=== PATIENT | male | born 1970 | race Caucasian/White ===

== ENCOUNTER → 2016-08-30 | Outpatient (CLI) | payer BC ==
[~2016-08-30] MED LIST: CIPR-226 PO; HYDR-3812 PO; MTR250T PO; SILD100T; SULF1TAB35 PO
--- OUTSIDE RECORDS SUMMARY | 2016-08-30 13:34 | XMS REPORT | Continuity of Care Document ---
Author Author [facility] Organization [facility] Address Unknown Phone Unavailable Allergies Active Description Code Type Severity Reaction Onset Reported/Identified Relationship to Patient Clinical Status Yes No Known Drug Allergies [id number] Drug Allergy Unknown N/ A 04/27/2016 Medications Problems Date Dx Coded Attending Type Code Diagnosis Diagnosed By 06/01/2014 KAREN GARDNER DO S Ot 237.71 NEUROFIBROMATOSIS,TYPE 1 VON [place] 06/01/2014 KEREN GARDNER DOLINE S Ot 530.81 ESOPHAGEAL REFLUX 06/01/2014 KEREN GARDNER DOLINE S Ot 558.9 NONINF GASTROENTERIT NEC 06/01/2014 KEREN GARDNER DOLINE S Ot 560.1 PARALYTIC ILEUS 06/01/2014 ALEX GARDNER DOQUELINE S Ot 560.32 FECAL IMPACTION 06/01/2014 ALEX GARDNER DOQUELINE S Ot 783.21 LOSS OF WEIGHT 06/01/2014 KEREN GARDNER DOLINE S Ot V11.3 HX OF ALCOHOLISM 06/01/2014 ALEX GARDNER DOQUELINE S Ot V15.82 HISTORY OF TOBACCO USE 06/17/2014 TAN FORD DO 564.00 UNSPECIFIED CONSTIPATION 06/17/2014 TAN FORD DO 578.1 BLOOD IN STOOL 06/17/2014 TAN FORD DO V11.3 PERSONAL HISTORY OF ALCOHOLISM 04/27/2016 HIEN JUAREZ, IMANI Madsen Ot L72.3 SEBACEOUS CYST 04/27/2016 HIEN JUAREZ, IMANI Madsen Ot Z01.818 ENCOUNTER FOR OTHER PREPROCEDURAL EXAMIN 04/27/2016 HIEN JUAREZ, IMANI Madsen Ot L72.3 SEBACEOUS CYST 04/27/2016 HIEN JUAREZ, IMANI Madsen Ot Z01.818 ENCOUNTER FOR OTHER PREPROCEDURAL EXAMIN 05/04/2016 HIEN JUAREZ, IMANI Madsen Ot Q85.09 OTHER NEUROFIBROMATOSIS 05/04/2016 HIEN JUAREZ, IMANI Madsen Ot Z11.2 ENCOUNTER FOR SCREENING FOR OTHER BACTER 05/04/2016 FRANDY LARRY APRN Ot L76.21 POSTPROC HEMOR OF SKIN, SUBCU FOL A DERM 05/05/2016 FRANDY LARRY APRN Ot L76.21 POSTPROC HEMOR OF SKIN, SUBCU FOL A DERM 05/07/2016 LORIE DO, BELGICA K Ot M79.89 OTHER SPECIFIED SOFT TISSUE DISORDERS 05/07/2016 LORIE DO, BELGICA K Ot R60.0 LOCALIZED EDEMA 05/07/2016 LORIE DO, BELGICA K Ot Z98.890 OTHER SPECIFIED POSTPROCEDURAL STATES 05/09/2016 LORIE DO, BELGICA K Ot M79.89 OTHER SPECIFIED SOFT TISSUE DISORDERS 05/09/2016 LORIE DO, BELGICA K Ot R60.0 LOCALIZED EDEMA 05/09/2016 LORIE DO, BELGICA K Ot Z98.890 OTHER SPECIFIED POSTPROCEDURAL STATES 05/10/2016 LORIE DO, BELGICA K Ot M79.89 OTHER SPECIFIED SOFT TISSUE DISORDERS 05/10/2016 LORIE DO, BELGICA K Ot R60.0 LOCALIZED EDEMA 05/10/2016 LORIE DO, BELGICA K Ot Z98.890 OTHER SPECIFIED POSTPROCEDURAL STATES 05/10/2016 HIEN JUAREZ, IMANI Madsen Ot Q85.09 OTHER NEUROFIBROMATOSIS 05/10/2016 HIEN JUAREZ, IMANI Madsen Ot Z11.2 ENCOUNTER FOR SCREENING FOR OTHER BACTER Procedures Code Description Performed By Performed On [facility] 06/17/2014 Results Test Result Range Methicillin resistant Staphylococcus aureus (MRSA) screening culture - 08:10 Methicillin resistant Staphylococcus aureus (MRSA) screening culture NEG NRG Encounters ACCT No. Visit Date/Time Discharge Status Pt. Type Provider Facility Loc./Unit Complaint [id number] 05/07/2016 21:49:00 2015 22:55:00 DIS Emergency BELGICA MELO DO [facility] ER L HAND PAIN WITH SWELLING [id number] 05/04/2016 19:10:00 2015 20:19:00 DIS Emergency FRANDY LARRY APRN [facility] ER POST SURG WOUND BLEEDING [id number] 05/04/2016 07:58:00 2015 14:33:00 DIS Outpatient HIEN JUAREZ, IMANI Madsen [facility] SDC MULTIPLE LESIONS [id number] 04/27/2016 05:35:00 2015 13:38:00 DIS Outpatient HIEN JUAREZ, IMANI Madsen [facility] PREOP EXCISION MULTIPLE CYSTS [id number] 05/31/2014 16:49:00 2013 13:00:00 DIS Inpatient KAREN GARDNER DO [facility] 4TH ABD PAIN INFECTIOUS COLITIS FECAL IMPACTION
--- NOTE | 2016-08-30 14:39 | Diagnostic Imaging Report ---
INDICATION: Lump along the inferior lateral aspect of the scrotum. TECHNIQUE: Real-time grayscale sonographic imaging and color vascular evaluation of both testicles was performed. CORRELATION STUDY: None FINDINGS: RIGHT testicle measures 4.5 x 2.2 x 2.6 cm. The right testicle is unremarkable in echogenicity. No focal testicular mass is demonstrated. There is color vascular flow. The right epididymis is unremarkable. LEFT testicle measures 4.6 x 2.2 x 2.5 cm. The left testicle is normal in echogenicity. No focal testicular mass is demonstrated. There is color vascular signal. The left epididymis is unremarkable. There is elongated slightly hypoechoic somewhat tubular shaped structure inferior to the epididymal tail. This is the reported area of lump. This area measures approximately 3.6 cm in length with maximum thickness of 0.6 cm. No significant internal vascularity. IMPRESSION: 1. Palpable abnormality corresponds to elongated, tubular structure adjacent to the inferior aspect of the epididymal tail. This finding is nonspecific. Perhaps a thrombosed vessel or varicocele. This would be a somewhat unusual appearance for neoplasm or other concerning mass. Would recommend close clinical followup correlation as well as short-term followup ultrasound imaging for reassessment. Dictated by: Dictated on workstation # [id number]
== END ==
LOC: RAD 11:43
PROVIDERS: ATTEND Family Medicine
DX: N50.811 Right testicular pain (principal)
CPT/HCPCS: 76870

== ENCOUNTER → 2017-03-30 | Outpatient (CLI) | payer BC ==
--- NOTE | 2017-03-30 10:09 | Diagnostic Imaging Report ---
PROCEDURE: CT head without contrast. INDICATION: Chronic cephalgia CT HEAD: Multiple contiguous axial CT images of the head were obtained. FINDINGS: Ventricles and sulci are within normal limits for size. There is no intracranial hemorrhage identified. There is no abnormal mass effect or shift of midline structures. IMPRESSION: Unremarkable CT of the head. Dictated by: Dictated on workstation # [id number]
== END ==
LOC: RAD 09:18
PROVIDERS: ATTEND Family Medicine
DX: R51 Headache (principal)
CPT/HCPCS: 70450

== ENCOUNTER 2017-06-20 11:32 | Emergency (ER) | payer BC ==
[~2017-06-20] VITALS: Ht 166.4 cm; Wt 70.3 kg
[2017-06-20] MEDS ORDERED: ESZO2TAB4 PO (11:58)
--- NOTE | 2017-06-20 12:02 | ED Upper Extremity ---
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 This began after pulling about 250 pound worth of bags at work that were stacked. While pulling this he felt a popping sensation in his shoulder. He now feels an intermittent grinding sensation. No history of shoulder pain prior to this. Onset: other (2 weeks ago) Severity: moderate Pain/Injury Location: right shoulder Modifying Factors: Worse With Movement Allergies and Home Medications Allergies Coded Allergies: No Known Drug Allergies (Unverified , 04/27/16) Home Medications Eszopiclone 2 Mg Tablet, 2 MG PO HS PRN for INSOMNIA, (Reported) Sildenafil Citrate 100 Mg Tablet, #6 (Reported) Constitutional: see HPI EENTM: see HPI Respiratory: no symptoms reported Cardiovascular: no symptoms reported Genitourinary: no symptoms reported Musculoskeletal: see HPI Skin: no symptoms reported Psychiatric/Neurological: No Symptoms Reported Past Qwbnsxr-Srcahy-Mevqee Hx Patient Social History Alcohol Use: Occasionally Uses Alcohol Beverage of Choice: Beer Recreational Drug Use: No Smoking Status: Former Smoker Type Used: Electronic/Vapor Former Smoker, Quit: Jul 10, 1989 Recent Foreign Travel: No Contact w/Someone Who Travel: No Recent Infectious Disease Expo: No Recent Hopitalizations: No Physical Abuse: No Sexual Abuse: No Mistreated: No Fear: No Immunizations Up To Date Tetanus Booster (TDap): Less than 5yrs Seasonal Allergies Seasonal Allergies: No Surgeries History of Surgeries: Yes (INGUINAL HERNIA, MULTIPLE NEUROFIBROMAS REMOVED) Surgeries: Abdominal Respiratory History of Respiratory Disorde: No Currently Using CPAP: No Cardiovascular History of Cardiac Disorders: No Neurological History of Neurological Disord: No Reproductive System Hx Reproductive Disorders: No Sexually Transmitted Disease: No HIV/AIDS: No Gastrointestinal History of Gastrointestinal Di: Yes Gastrointestinal Disorders: Gastroesophageal Reflux, Gastrointestinal Bleed Musculoskeletal History of Musculoskeletal Dis: No Endocrine History of Endocrine Disorders: No HEENT History of HEENT Disorders: No Loss of Vision: Bilateral Hearing Impairment: Denies Cancer History of Cancer: No Psychosocial History of Psychiatric Problem: No Suicide Risk Score: 1 Integumentary History of Skin or Integumenta: Yes (NEUROFIBROMAS) Blood Transfusions History of Blood Disorders: No Adverse Reaction to a Blood Tr: No (N/A) Family Medical History Family Medial History: Arthritis 19 MOTHER Neoplasm 19 MOTHER Parkinson's disease 19 FATHER No Family History of: AIDS Abdominal aortic aneurysm [place]'s disease Alcoholism Alzheimer's disease Aphasia Asthma Cancer of mouth Cardiovascular disease Cataracts Colon cancer Completed stroke Congenital disease Congenital heart disease Coronary thrombosis Cystic fibrosis Deafness or hearing loss Dementia Diabetes mellitus Drug abuse Dysphasia Fibrocystic disease of breast Gastroenteritis Glaucoma Headache disorder Hypercholesterolemia Hypertension Infertility Kidney disease Myocardial infarction Not obtainable due to adoption Osteoporosis Prostate cancer Psychosocial problem Respiratory disorder Seizure disorder Severe allergy Thyroid disease Tuberculosis Visual disorder Physical Exam Vital Signs Vital Sign - Last 12Hours 06/20/17 11:48 Temp 98.4 Pulse 97 Resp 16 B/P (MAP) 130/98 (109) Pulse Ox 98 O2 Delivery Room Air Capillary Refill : Less Than 3 Seconds General Appearance: WD/WN, no apparent distress HEENT: PERRL/EOMI, normal ENT inspection Neck: non-tender, full range of motion Respiratory: no respiratory distress, no accessory muscle use Gastrointestinal: normal bowel sounds, non tender Shoulder: normal inspection, non-tender, limited ROM, pain Elbow/Forearm: normal inspection, non-tender Wrist: Yes normal inspection, Yes non-tender Neurologic/Psychiatric: alert, normal mood/affect, oriented x 3 Skin: normal color, warm/dry Laceration Repair : Suture Size: 5-0 Progress/Results/Core Measures Results/Orders My Orders Orders - FRANDY LARRY APRN Shoulder, Right, 3 Views (06/20/17 11:58) Vital Signs/I&O Vital Sign - Last 12Hours 06/20/17 11:48 Temp 98.4 Pulse 97 Resp 16 B/P (MAP) 130/98 (109) Pulse Ox 98 O2 Delivery Room Air Blood Pressure Mean: 109 Departure Impression Impression: Primary Impression: Internal derangement of right shoulder Disposition: 01 HOME, SELF-CARE Condition: Stable Departure-Patient Inst. Decision time for Depature: 12:12 Referrals: KAREN GARDNER DO (PCP/Family) Primary Care Physician Patient Instructions: NO INSTRUCTIONS GIVEN Add. Discharge Instructions: 1. Follow-up with her regular doctor this week to discuss ordering an MRI to better evaluate the cause of your shoulder pain. Use anti-inflammatories in the meantime for pain control such as naproxen or ibuprofen Work/School Note: Work Release Form Date Seen in the Emergency Department: Jun 20, 2017 Return to Work: Jun 21, 2017 Other Restrictions Listed Below: No pushing or pulling greater than 5 pounds with right arm until cleared Copy Copies To 1: KAREN GARDNER PETER J APRN Jun 20, 2017 12:02
[2017-06-20 12:29] VITALS: BP 130/98
--- NOTE | 2017-06-20 12:34 | Diagnostic Imaging Report ---
Three views of the right shoulder. INDICATION: Injury. FINDINGS: No fracture, dislocation, or radiopaque foreign body is seen. Mild joint space narrowing at the acromioclavicular joint is seen. The glenohumeral joint appears unremarkable. IMPRESSION: No fracture seen. Dictated by: Dictated on workstation # [id number]
== END 2017-06-20 12:29 | disposition home or self-care (01) ==
LOC: EDUNIT# 11:32 → ER 11:37
DX: M23.91 Unspecified internal derangement of right knee (principal); K21.9 Gastro-esophageal reflux disease without esophagitis; Z87.891 Personal history of nicotine dependence; Z87.19 Personal history of other diseases of the digestive system; X50.0XXA Overexertion from strenuous movement or load, initial encounter; Y92.59 Other trade areas as the place of occurrence of the external cause
CPT/HCPCS: 73030; 99282

== ENCOUNTER 2017-09-06 15:27 | Emergency (ER) | payer BC ==
[~2017-09-06] VITALS: Ht 172.7 cm; Wt 68.0 kg
[~2017-09-06 15:27] MED LIST changes: +ACHD5005 PO; +ESZO2TAB4 PO; -HYDR-3812 PO
[2017-09-06] MEDS ORDERED: NITROGLYCERIN 0.4 MG SL TABS BTL 25'S SL ONE (15:35)
[2017-09-06] MEDS ORDERED: ASPIRIN 81 MG CHEW (CHILDREN'S ASA) ONE (15:35)
[2017-09-06] MEDS ORDERED: ASPIRIN 81 MG CHEW (CHILDREN'S ASA) PO ONE (15:45)
[2017-09-06 15:51] LABS: BASOPHILS # (AUTO) 0.1 10^3/uL (0.0-0.1); BASOPHILS % (AUTO) 1 % (0-10); EOSINOPHILS # (AUTO) 0.3 10^3/uL (0.0-0.3); EOSINOPHILS % (AUTO) 3 % (0-10); HEMATOCRIT 46 % (40-54); HEMOGLOBIN 16.2 G/DL (13.3-17.7); LYMPHOCYTES # (AUTO) 1.9 X 10^3 (1.0-4.0); LYMPHOCYTES % (AUTO) 21 % (12-44); MEAN CORPUSCULAR HEMOGLOBIN 31 PG (25-34); MEAN CORPUSCULAR HGB CONC 35 G/DL (32-36); MEAN CORPUSCULAR VOLUME 87 FL (80-99); MEAN PLATELET VOLUME 9.2 FL (7.4-10.4); MONOCYTES % (AUTO) 11 % (0-12); NEUTROPHILS # (AUTO) 5.8 X 10^3 (1.8-7.8); NEUTROPHILS % (AUTO) 64 % (42-75); PLATELET COUNT 309 10^3/uL (130-400); RED BLOOD COUNT 5.31 10^6/uL (4.35-5.85); RED CELL DISTRIBUTION WIDTH 13.6 % (10.0-14.5); WHITE BLOOD COUNT 8.9 10^3/uL (4.3-11.0)
--- NOTE | 2017-09-06 15:54 | ED Chest Pain ---
General Chief Complaint: Chest Pain Stated Complaint: CHEST PAIN Nursing Triage Note: PT CO OF CHEST PAIN THAT STARTED APPROX 10 MIN AGO. PT STATES WAS AT REST. PT STATES HAS MID CHEST PAIN. Nursing Sepsis Screen: No Definite Risk Source: patient Exam Limitations: no limitations (VAISHNAVI CHEUNG MD) History of Present Illness Date Seen by Provider: Sep 06, 2017 Time Seen by Provider: 15:29 Initial Comments Here with report of central chest pain that is described as aching and squeezing. Started about 10 minutes prior to arrival and then got better. Denies nausea, vomiting, breathing problems or weakness. Denies sweating. Timing/Duration: 1/2 hour Severity/Quality: moderate Location: central Radiation: no radiation Prior CP/Workup: no prior chest pain, no prior cardiac workup Modifying Factors: improves with rest ASA po KINDERGARTNERS HELPER: No NTG SL KINDERGARTNERS HELPER: No Associated Symptoms: No abdominal pain, No back pain, No dizziness, No fever/ chills, No nausea/vomiting, No shortness of breath, No weakness (VAISHNAVI CHEUNG MD) Allergies and Home Medications Allergies Coded Allergies: No Known Drug Allergies (Unverified , 04/27/16) Home Medications Eszopiclone 2 Mg Tablet, 2 MG PO HS PRN for INSOMNIA, (Reported) Review of Systems Constitutional: see HPI, No diaphoresis, No fever EENTM: No Symptoms Reported Respiratory: No Symptoms Reported Cardiovascular: No Symptoms Reported Gastrointestinal: No Symptoms Reported (VAISHNAVI CHEUNG MD) All Other Systems Reviewed Negative Unless Noted: Yes (VAISHNAVI CHEUNG MD) Past Xloltis-Ndigne-Mldpib Hx Patient Social History Alcohol Use: Denies Use Number of Drinks Today: AA Alcohol Beverage of Choice: Beer Recreational Drug Use: No Smoking Status: Former Smoker Type Used: Electronic/Vapor Former Smoker, Quit: Jul 10, 1989 Recent Foreign Travel: No Contact w/Someone Who Travel: No Recent Infectious Disease Expo: No Recent Hopitalizations: No (VAISHNAVI CHEUNG MD) Immunizations Up To Date Tetanus Booster (TDap): Less than 5yrs (VAISHNAVI CHEUNG MD) Seasonal Allergies Seasonal Allergies: No (VAISHNAVI CHEUNG MD) Surgeries History of Surgeries: Yes (INGUINAL HERNIA, MULTIPLE NEUROFIBROMAS REMOVED) Surgeries: Abdominal (VAISHNAVI CHEUNG MD) Respiratory History of Respiratory Disorde: No Currently Using CPAP: No (VAISHNAVI CHEUNG MD) Cardiovascular History of Cardiac Disorders: No (VAISHNAVI CHEUNG MD) Neurological History of Neurological Disord: No (VAISHNAVI CHEUNG MD) Reproductive System Hx Reproductive Disorders: No Sexually Transmitted Disease: No HIV/AIDS: No (VAISHNAVI CHEUNG MD) Gastrointestinal History of Gastrointestinal Di: Yes Gastrointestinal Disorders: Gastroesophageal Reflux, Gastrointestinal Bleed (VAISHNAVI CHEUNG MD) Musculoskeletal History of Musculoskeletal Dis: No (VAISHNAVI CHEUNG MD) Endocrine History of Endocrine Disorders: No (VAISHNAVI CHEUNG MD) HEENT History of HEENT Disorders: No Loss of Vision: Bilateral Hearing Impairment: Denies (VAISHNAVI CHEUNG MD) Cancer History of Cancer: No (VAISHNAVI CHEUNG MD) Psychosocial History of Psychiatric Problem: No (VAISHNAVI CHEUNG MD) Integumentary History of Skin or Integumenta: Yes (NEUROFIBROMAS) (VAISHNAVI CHEUNG MD) Blood Transfusions History of Blood Disorders: No Adverse Reaction to a Blood Tr: No (N/A) (VAISHNAVI CHEUNG MD) Reviewed Nursing Assessment Reviewed/Agree w Nursing PMH: Yes (VAISHNAVI CHEUNG MD) Family Medical History Significant Family History: No Pertinent Family Hx Family Medial History: Arthritis 19 MOTHER Neoplasm 19 MOTHER Parkinson's disease 19 FATHER (VAISHNAVI CHEUNG MD) Family Medial History: Arthritis 19 MOTHER Neoplasm 19 MOTHER Parkinson's disease 19 FATHER No Family History of: AIDS Abdominal aortic aneurysm Sonu's disease Alcoholism Alzheimer's disease Aphasia Asthma Cancer of mouth Cardiovascular disease Cataracts Colon cancer Completed stroke Congenital disease Congenital heart disease Coronary thrombosis Cystic fibrosis Deafness or hearing loss Dementia Diabetes mellitus Drug abuse Dysphasia Fibrocystic disease of breast Gastroenteritis Glaucoma Headache disorder Hypercholesterolemia Hypertension Infertility Kidney disease Myocardial infarction Not obtainable due to adoption Osteoporosis Prostate cancer Psychosocial problem Respiratory disorder Seizure disorder Severe allergy Thyroid disease Tuberculosis Visual disorder (RAZIA ROMANO) Physical Exam Vital Signs Vital Signs - First Documented 09/06/17 15:27 Temp 97.4 Pulse 83 Resp 18 B/P (MAP) 144/98 (113) Pulse Ox 98 (RAZIA ROMANO) Vital Signs Capillary Refill : Less Than 3 Seconds (VAISHNAVI CHEUNG MD) General Appearance: No Apparent Distress, WD/WN HEENT: PERRL/EOMI, Pharynx Normal Neck: Non Tender, Supple Respiratory: Lungs Clear, Normal Breath Sounds Cardiovascular: Regular Rate, Rhythm, No Murmur Gastrointestinal: Non Tender, Soft Extremity: Normal Inspection, Normal Range of Motion Neurologic/Psychiatric: Alert, Oriented x3 Skin: Normal Color, Warm/Dry (VAISHNAVI CHEUNG MD) Laceration Repair : Suture Size: 5-0 (VAISHNAVI CHEUNG MD) Progress/Results/Core Measures Results/Orders Lab Results Laboratory Tests Test 09/06/17 15:43 09/06/17 18:10 Range/Units White Blood Count 8.9 4.3-11.0 10^3/uL Red Blood Count 5.31 4.35-5.85 10^6/uL Hemoglobin 16.2 13.3-17.7 G/DL Hematocrit 46 40-54 % Mean Corpuscular Volume 87 80-99 FL Mean Corpuscular Hemoglobin 31 25-34 PG Mean Corpuscular Hemoglobin Concent 35 32-36 G/DL Red Cell Distribution Width 13.6 10.0-14.5 % Platelet Count 309 130-400 10^3/uL Mean Platelet Volume 9.2 7.4-10.4 FL Neutrophils (%) (Auto) 64 42-75 % Lymphocytes (%) (Auto) 21 12-44 % Monocytes (%) (Auto) 11 0-12 % Eosinophils (%) (Auto) 3 0-10 % Basophils (%) (Auto) 1 0-10 % Neutrophils # (Auto) 5.8 1.8-7.8 X 10^3 Lymphocytes # (Auto) 1.9 1.0-4.0 X 10^3 Monocytes # (Auto) 1.0 0.0-1.0 X 10^3 Eosinophils # (Auto) 0.3 0.0-0.3 10^3/uL Basophils # (Auto) 0.1 0.0-0.1 10^3/uL Prothrombin Time 12.8 12.2-14.7 SEC INR Comment 1.0 0.8-1.4 Activated Partial Thromboplast Time 31 24-35 SEC D-Dimer 0.73 H 0.00-0.49 UG/ML Sodium Level 141 135-145 MMOL/L Potassium Level 3.9 3.6-5.0 MMOL/L Chloride Level 110 H 98-107 MMOL/L Carbon Dioxide Level 22 21-32 MMOL/L Anion Gap 9 5-14 MMOL/L Blood Urea Nitrogen 19 H 7-18 MG/DL Creatinine 0.91 0.60-1.30 MG/DL Estimat Glomerular Filtration Rate > 60 BUN/Creatinine Ratio 21 Glucose Level 91 70-105 MG/DL Calcium Level 8.9 8.5-10.1 MG/DL Magnesium Level 2.2 1.8-2.4 MG/DL Total Bilirubin 0.5 0.1-1.0 MG/DL Aspartate Amino Transf (AST/SGOT) 17 5-34 U/L Alanine Aminotransferase (ALT/SGPT) 27 0-55 U/L Alkaline Phosphatase 56 40-136 U/L Myoglobin 37.1 10.0-92.0 NG/ML Troponin I < 0.30 < 0.30 <0.30 NG/ML B-Type Natriuretic Peptide 17.5 <100.0 PG/ML Total Protein 7.2 6.4-8.2 GM/DL Albumin 4.2 3.2-4.5 GM/DL Amylase Level 160 H 25-125 U/L Lipase 37 8-78 U/L (RAZIA ROMANO) My Orders Orders - RAZIA ROMANO Nitroglycerin 0.4 Mg Btl 25's (Nitrostat (09/06/17 15:35) Aspirin Chewable Tablet (Baby Aspirin Ch (09/06/17 15:35) (RAZIA ROMANO) Medications Given in ED Current Medications Medications Dose Ordered Sig/Rafael Route Start Time Stop Time Status Last Admin Dose Admin Aspirin 81 mg STK-MED ONCE .ROUTE 09/06/17 15:35 09/06/17 15:39 DC 09/06/17 15:41 81 MG Iohexol 150 ml ONCE ONCE IV 09/06/17 17:15 09/06/17 17:16 DC 09/06/17 17:26 125 ML Sodium Chloride 100 ml ONCE ONCE IV 09/06/17 17:15 09/06/17 17:16 DC 09/06/17 17:26 100 ML Sodium Chloride 1,000 ml @ 0 mls/hr Q0M ONCE IV 09/06/17 16:57 09/06/17 16:58 DC 09/06/17 17:45 1,000 MLS/HR (RAZIA ROMANO) Vital Signs/I&O Vital Sign - Last 12Hours 09/06/17 15:27 Temp 97.4 Pulse 83 Resp 18 B/P (MAP) 144/98 (113) Pulse Ox 98 (RAZIA ROMANO) Blood Pressure Mean: 113 Progress Note : Progress Note Seen and evaluated. IV, labs, EKG and chest x-ray ordered. ASA 324 mg by mouth 1 ordered. No nitroglycerin as patient is currently pain-free. Monitor patient. 165: CT angiogram of the chest and normal saline 1 L bolus ordered due to elevated d-dimer. Patient is still pain-free. Monitor patient. (VAISHNAVI CHEUNG MD) Progress Note : Progress Note Amylase is mildly elevated with a lipase is normal this probably not acute pancreatitis. We have seen examine the patient washistory and agree with further outpatient workup at his leisure as this divorce and be cardiogenic or anything life-threatening at the moment. (RAZIA ROMANO) ECG Initial ECG Impression Date: Sep 06, 2017 Initial ECG Impression Time: 15:29 Initial ECG Rate: 69 Initial ECG Rhythm: Normal Sinus Initial ECG Impression: Normal Initial ECG Comparisson: No Previous ECG Available Comment Sinus rhythm with normal axis. No evidence of ST elevation [place]. No previous available for comparison. Interpreted by me. (VAISHNAVI CHEUNG MD) EKG : EKG Time: 18:08 Rate: 66 Rhythm: Normal Sinus Intervals: Normal ECG Comparisson: Unchanged ECG Impression: Normal Comment No ST segment elevation or depression. (RAZIA ROMANO) Diagnostic Imaging Diagonstic Imaging: Xray Plain Films/CT/US/NM/MRI: chest Comments NAME: MARBELLA SHERIFF [facility] REC#: [id number] PT STATUS: REG ER : 1970 PHYSICIAN: VAISHNAVI CHEUNG MD ADMIT DATE: 09/06/17/ER Signed Date of Exam: 09/06/17 CHEST 1 VIEW, AP/PA ONLY INDICATION: Chest pain. COMPARISON: None. EXAMINATION: Upright portable view of the chest was obtained. FINDINGS: Heart size is normal. The pulmonary vessels are unremarkable. There is no pneumothorax, mediastinal widening or pleural fluid. The lungs are clear. IMPRESSION: No acute abnormality is demonstrated. Dictated by: Dictated on workstation # [id number] Dict: 09/06/17 1613 Trans: 09/06/171652 Interpreted by: TYRON MAC DO Electronically signed by: TYRON AMC DO 09/06/171652 Diagonstic Imaging: CT Plain Films/CT/US/NM/MRI: chest Comments [place] NAME: MARBELLA SHERIFF [facility] REC#: [id number] PT STATUS: REG ER : 1970 PHYSICIAN: VAISHNAVI CHEUNG MD ADMIT DATE: 09/06/17/ER Draft Date of Exam:09/06/17 CT ANGIO CHEST W PROCEDURE: CT angiography of the chest with contrast. TECHNIQUE: Multiple contiguous axial images were obtained through the chest after uneventful bolus administration of intravenous contrast. Reconstructed CTA MIP acquisitions were also performed. INDICATION: Chest pain, short of air The lungs are clear. There is no effusion or pneumothorax. There is no mediastinal mass or adenopathy. There is no aortic dissection. There is no pulmonary embolus. IMPRESSION: No acute abnormality is seen. Dictated on workstation # [id number] Dict: 09/06/17 1741 Trans: 09/06/17 1744 [id number] Interpreted by: SU WADE MD Electronically signed by: (VAISHNAVI CHEUNG MD) Transfer of Care Transfer of Care Time: 18:00 Care transferred to: Babatunde (RAZIA ROMANO) Departure Impression Impression: Primary Impression: Chest pain Qualified Codes: R07.9 - Chest pain, unspecified Disposition: 01 HOME, SELF-CARE Condition: Stable Departure-Patient Inst. Decision time for Depature: 18:49 (RAZIA ROMANO) Referrals: KAREN GARDNER DO (PCP/Family) Primary Care Physician Patient Instructions: Chest Pain That Is Not Caused by the Heart (DC) Add. Discharge Instructions: If your pain persists she should follow-up with your primary care physician for further evaluation. If your pain becomes persistent will go away or is accompanied by fevers, nausea vomiting or other worrisome symptoms you should return to care. All discharge instructions reviewed with patient and/or family. Voiced understanding. Work/School Note: Work Release Form Date Seen in the Emergency Department: Sep 06, 2017 Return to Work: Sep 07, 2017 Restrictions: No Restrictions VAISHNAVI CHEUNG MD Sep 06, 2017 15:53 RAZIA ROMANO Sep 06, 2017 18:26
[2017-09-06 16:10] LABS: PROTHROMBIN TIME PATIENT 12.8 SEC (12.2-14.7)
[2017-09-06 16:14] LABS: ALANINE AMINOTRANSFERASE 27 U/L (0-55); ALBUMIN 4.2 GM/DL (3.2-4.5); ALKALINE PHOSPHATASE 56 U/L (40-136); AMYLASE 160 U/L (25-125); BILIRUBIN,TOTAL 0.5 MG/DL (0.1-1.0); BUN/CREATININE RATIO 21; CALCIUM 8.9 MG/DL (8.5-10.1); CARBON DIOXIDE 22 MMOL/L (21-32); CHLORIDE 110 MMOL/L (98-107); CREATININE SERUM 0.91 MG/DL (0.60-1.30); GFR ESTIMATED > 60; GLUCOSE 91 MG/DL (70-105); LIPASE 37 U/L (8-78); MAGNESIUM 2.2 MG/DL (1.8-2.4); POTASSIUM 3.9 MMOL/L (3.6-5.0); SODIUM 141 MMOL/L (135-145); TOTAL PROTEIN 7.2 GM/DL (6.4-8.2)
--- NOTE | 2017-09-06 16:17 | Diagnostic Imaging Report ---
INDICATION: Chest pain. COMPARISON: None. EXAMINATION: Upright portable view of the chest was obtained. FINDINGS: Heart size is normal. The pulmonary vessels are unremarkable. There is no pneumothorax, mediastinal widening or pleural fluid. The lungs are clear. IMPRESSION: No acute abnormality is demonstrated. Dictated by: Dictated on workstation # [id number]
[2017-09-06 16:20] LABS: MYOGLOBIN SERUM 37.1 NG/ML (10.0-92.0)
[2017-09-06] MEDS ORDERED: NS IV 1000 ML 1,000 ML IV ONE (16:57)
[2017-09-06] MEDS ORDERED: NS 100 ML (IVPB) BAG IV ONE (17:15)
[2017-09-06] MEDS ORDERED: IOHEXOL 350 MG/ML 150 ML (OMNIPAQUE 350) VIAL IV ONE (17:15)
--- NOTE | 2017-09-06 17:45 | Diagnostic Imaging Report ---
PROCEDURE: CT angiography of the chest with contrast. TECHNIQUE: Multiple contiguous axial images were obtained through the chest after uneventful bolus administration of intravenous contrast. Reconstructed CTA MIP acquisitions were also performed. INDICATION: Chest pain, short of air The lungs are clear. There is no effusion or pneumothorax. There is no mediastinal mass or adenopathy. There is no aortic dissection. There is no pulmonary embolus. IMPRESSION: No acute abnormality is seen. Dictated by: Dictated on workstation # [id number]
[2017-09-06 19:00] VITALS: BP 144/102
== END 2017-09-06 19:00 | disposition home or self-care (01) ==
LOC: EDUNIT# 15:27 → ER 15:29
DX: R07.89 Other chest pain (principal); K21.9 Gastro-esophageal reflux disease without esophagitis; Z87.891 Personal history of nicotine dependence; Z87.19 Personal history of other diseases of the digestive system
CPT/HCPCS: 36415; 71045; 71275; 80053; 82150; 83690; 83735; 83874; 83880; 84484; 85025; 85379; 85610; 85730; 93005; 93041; 96360

== ENCOUNTER 2020-10-08 08:30 | Observation (INO) | payer BC ==
[~2020-10-08] VITALS: Ht 167 cm; Wt 72.0 kg
[2020-10-08] MEDS ORDERED: ASPIRIN 81 MG CHEW (CHILDREN'S ASA) ONE (08:38)
[2020-10-08] MEDS ORDERED: NITROGLYCERIN 0.4 MG SL TABS BTL 25'S SL ONE (08:38)
[2020-10-08] MEDS ORDERED: ASPIRIN 81 MG CHEW (CHILDREN'S ASA) PO ONE (08:45)
[2020-10-08] MEDS ORDERED: NITROGLYCERIN 0.4 MG SL TABS BTL 25'S SL PRN ×2 (08:45→11:45)
[2020-10-08 08:51] LABS: BASOPHILS # (AUTO) 0.1 10^3/uL (0.0-0.1); BASOPHILS % (AUTO) 1 % (0-10); EOSINOPHILS # (AUTO) 0.2 10^3/uL (0.0-0.3); EOSINOPHILS % (AUTO) 2 % (0-10); HEMATOCRIT 49 % (40-54); HEMOGLOBIN 16.6 g/dL (13.3-17.7); LYMPHOCYTES # (AUTO) 1.7 10^3/uL (1.0-4.0); LYMPHOCYTES % (AUTO) 18 % (12-44); MEAN CORPUSCULAR HEMOGLOBIN 30 pg (25-34); MEAN CORPUSCULAR HGB CONC 34 g/dL (32-36); MEAN CORPUSCULAR VOLUME 88 fL (80-99); MEAN PLATELET VOLUME 9.1 fL (9.0-12.2); MONOCYTES % (AUTO) 10 % (0-12); NEUTROPHILS # (AUTO) 6.5 10^3/uL (1.8-7.8); NEUTROPHILS % (AUTO) 68 % (42-75); PLATELET COUNT 319 10^3/uL (130-400); WHITE BLOOD COUNT 9.6 10^3/uL (4.3-11.0)
--- NOTE | 2020-10-08 08:55 | ED Chest Pain ---
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 He checked his blood pressure because he was having crushing left-sided substernal chest pain radiating down into his left arm below the level of his elbow. He relates that the blood pressure was 141 systolic. He said his pain was about a 8 out of 10 and he took 2 aspirin 81 mg each at the time and then after he got off work he went home and took a tramadol which brought his pain down to an 8 at its worst to a 4 out of 10. He is not having shortness of breath fever chills cough or sick contacts. No nausea sweats. He denies a history of hypertension, hyperlipidemia or diabetes but says he does not follow with a primary care provider. He has been in the ER for chest pain in the past but denies a heart catheterization. He does not smoke and quit in his 20s. He does not use tobacco products or illicit drugs. He states he does drink rarely beer. He has a history of neurofibromatosis. He denies having used any Viagra recently. 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 Significant family history involving mom dad and siblings all with heart disease starting under the age of 60. His mother of a brain aneurysm his father of a heart attack. Last oral intake was 10:00 yesterday p.m. Allergies and Home Medications Allergies Coded Allergies: No Known Drug Allergies (Unverified , 04/27/16) Home Medications Eszopiclone 2 Mg Tablet, 2 MG PO HS PRN for INSOMNIA, (Reported) Patient Home Medication List Home Medication List Reviewed: Yes Review of Systems Review of Systems Constitutional: No chills, No diaphoresis EENTM: No Blurred Vision, No Double Vision Respiratory: Denies Cough, Denies Orthopnea Cardiovascular: Chest Pain; Denies Edema, Denies Irregular Heart Rate, Denies Lightheadedness Gastrointestinal: Denies Abdominal Pain, Denies Constipated, Denies Diarrhea, Denies Nausea Genitourinary: Denies Burning, Denies Discharge Musculoskeletal: No back pain, No joint pain Psychiatric/Neurological: Denies Anxiety, Denies Depressed All Other Systems Reviewed Negative Unless Noted: Yes Past Hmdwjpa-[id number]-Xtvtmg Hx Patient Social History Alcohol Use: Rarely Uses Alcohol Beverage of Choice: Beer Drug of Choice: Denies Smoking Status: Former Smoker Type Used: Electronic/Vapor Former Smoker, Quit: Jul 10, 1989 Recent Hopitalizations: No Immunizations Up To Date Tetanus Booster (TDap): Less than 5yrs Seasonal Allergies Seasonal Allergies: No Past Medical History Surgeries: Yes (INGUINAL HERNIA, MULTIPLE NEUROFIBROMAS REMOVED) Abdominal Respiratory: No Currently Using CPAP: No Cardiac: No Neurological: No Reproductive Disorders: No Sexually Transmitted Disease: No HIV/AIDS: No Gastrointestinal: Yes Gastroesophageal Reflux, Gastrointestinal Bleed Musculoskeletal: No Endocrine: No HEENT: No Loss of Vision: Bilateral Hearing Impairment: Denies Cancer: No Psychosocial: No Integumentary: Yes (NEUROFIBROMAS) Blood Disorders: No Adverse Reaction/Blood Tranf: No (N/A) Family Medical History Arthritis 19 MOTHER Neoplasm 19 MOTHER Parkinson's disease 19 FATHER No Family History of: AIDS Abdominal aortic aneurysm Ringgold's disease Alcoholism Alzheimer's disease Aphasia Asthma Cancer of mouth Cardiovascular disease Cataracts Colon cancer Completed stroke Congenital disease Congenital heart disease Coronary thrombosis Cystic fibrosis Deafness or hearing loss Dementia Diabetes mellitus Drug abuse Dysphasia Fibrocystic disease of breast Gastroenteritis Glaucoma Headache disorder Hypercholesterolemia Hypertension Infertility Kidney disease Myocardial infarction Not obtainable due to adoption Osteoporosis Prostate cancer Psychosocial problem Respiratory disorder Seizure disorder Severe allergy Thyroid disease Tuberculosis Visual disorder No Pertinent Family Hx Physical Exam Vital Signs Vital Signs - First Documented 10/08/20 08:43 Temp 36.5 Pulse 88 Resp 18 B/P (MAP) 141/100 (114) Pulse Ox 98 O2 Delivery Room Air Capillary Refill : Height, Weight, BMI Height: 5'8.00" Weight: 150lbs. 0.0oz. [id number]; 23.5 BMI Method:Stated General Appearance: WD/WN, Mild Distress HEENT: PERRL/EOMI, Pharynx Normal, Moist Mucous Membranes Neck: Full Range of Motion, Normal Inspection Respiratory: Lungs Clear, Normal Breath Sounds, No Accessory Muscle Use, No Respiratory Distress Cardiovascular: Regular Rate, Rhythm, No Edema, Normal Peripheral Pulses Gastrointestinal: Normal Bowel Sounds, Non Tender, Soft Extremity: Normal Capillary Refill, Normal Inspection, No Pedal Edema Neurologic/Psychiatric: Alert, Oriented x3 Skin: Normal Color, Warm/Dry Procedures/Interventions Suture Size: 5-0 Progress/Results/Core Measures Results/Orders Lab Results Laboratory Tests Test 10/08/20 08:40 10/08/20 09:24 Range/Units White Blood Count 9.6 4.3-11.0 10^3/uL Red Blood Count 5.55 H 4.30-5.52 10^6/uL Hemoglobin 16.6 13.3-17.7 g/dL Hematocrit 49 40-54 % Mean Corpuscular Volume 88 80-99 fL Mean Corpuscular Hemoglobin 30 25-34 pg Mean Corpuscular Hemoglobin Concent 34 32-36 g/dL Red Cell Distribution Width 13.2 10.0-14.5 % Platelet Count 319 130-400 10^3/uL Mean Platelet Volume 9.1 9.0-12.2 fL Immature Granulocyte % (Auto) 1 % Neutrophils (%) (Auto) 68 42-75 % Lymphocytes (%) (Auto) 18 12-44 % Monocytes (%) (Auto) 10 0-12 % Eosinophils (%) (Auto) 2 0-10 % Basophils (%) (Auto) 1 0-10 % Neutrophils # (Auto) 6.5 1.8-7.8 10^3/uL Lymphocytes # (Auto) 1.7 1.0-4.0 10^3/uL Monocytes # (Auto) 1.0 0.0-1.0 10^3/uL Eosinophils # (Auto) 0.2 0.0-0.3 10^3/uL Basophils # (Auto) 0.1 0.0-0.1 10^3/uL Immature Granulocyte # (Auto) 0.1 0.0-0.1 10^3/uL Prothrombin Time 12.6 12.2-14.7 SEC INR Comment 0.9 0.8-1.4 Activated Partial Thromboplast Time 31 24-35 SEC Sodium Level 138 135-145 MMOL/L Potassium Level 4.0 3.6-5.0 MMOL/L Chloride Level 104 98-107 MMOL/L Carbon Dioxide Level 20 L 21-32 MMOL/L Anion Gap 14 5-14 MMOL/L Blood Urea Nitrogen 21 H 7-18 MG/DL Creatinine 0.94 0.60-1.30 MG/DL Estimat Glomerular Filtration Rate > 60 BUN/Creatinine Ratio 22 Glucose Level 97 70-105 MG/DL Calcium Level 9.0 8.5-10.1 MG/DL Corrected Calcium 8.8 8.5-10.1 MG/DL Magnesium Level 2.2 1.6-2.4 MG/DL Total Bilirubin 0.7 0.1-1.0 MG/DL Aspartate Amino Transf (AST/SGOT) 18 5-34 U/L Alanine Aminotransferase (ALT/SGPT) 27 0-55 U/L Alkaline Phosphatase 57 40-136 U/L Myoglobin 136.2 H 10.0-92.0 NG/ML Troponin I < 0.028 <0.028 NG/ML Total Protein 7.3 6.4-8.2 GM/DL Albumin 4.2 3.2-4.5 GM/DL Triglycerides Level 171 H <150 MG/DL Lipase 281 H 8-78 U/L Urine Color YELLOW Urine Clarity CLEAR Urine pH 6.5 5-9 Urine Specific [place] >=1.030 1.016-1.022 Urine Protein NEGATIVE NEGATIVE Urine Glucose (UA) NEGATIVE NEGATIVE Urine Ketones NEGATIVE NEGATIVE Urine Nitrite NEGATIVE NEGATIVE Urine Bilirubin NEGATIVE NEGATIVE Urine Urobilinogen 0.2 < = 1.0 MG/DL Urine Leukocyte Esterase NEGATIVE NEGATIVE Urine RBC (Auto) NEGATIVE NEGATIVE Urine RBC 5-10 H /HPF Urine WBC RARE /HPF Urine Squamous Epithelial Cells NONE /HPF Urine Crystals PRESENT H /LPF Urine Amorphous Sediment RARE CHRISSIE URATES H /LPF Urine Bacteria NEGATIVE /HPF Urine Casts NONE /LPF Urine Mucus LARGE H /LPF Urine Culture Indicated NO Urine Opiates Screen NEGATIVE NEGATIVE Urine Oxycodone Screen NEGATIVE NEGATIVE Urine Methadone Screen NEGATIVE NEGATIVE Urine Propoxyphene Screen NEGATIVE NEGATIVE Urine Barbiturates Screen NEGATIVE NEGATIVE Ur Tricyclic Antidepressants Screen NEGATIVE NEGATIVE Urine Phencyclidine Screen NEGATIVE NEGATIVE Urine Amphetamines Screen NEGATIVE NEGATIVE Urine Methamphetamines Screen POSITIVE H NEGATIVE Urine Benzodiazepines Screen NEGATIVE NEGATIVE Urine Cocaine Screen NEGATIVE NEGATIVE Urine Cannabinoids Screen NEGATIVE NEGATIVE My Orders Orders - JUAN ANTONIORAZIA J Cbc With Automated Diff (10/08/20 08:43) Magnesium (10/08/20 08:43) Chest 1 View, Ap/Pa Only (10/08/20 08:43) Ekg Tracing (10/08/20 08:43) Comprehensive Metabolic Panel (10/08/20 08:43) Myoglobin Serum (10/08/20 08:43) Protime With Inr (10/08/20 08:43) Partial Thromboplastin Time (10/08/20 08:43) O2 (10/08/20 08:43) Monitor-Rhythm Ecg Trace Only (10/08/20 08:43) Lipid Panel (10/09/20 06:00) Ed Iv/Invasive Line Start (10/08/20 08:43) Lipase (10/08/20 08:43) Troponin I (10/08/20 08:43) Nitroglycerin 0.4 Mg Btl 25's (Nitrostat (10/08/20 08:45) Aspirin Chewable Tablet (Baby Aspirin Ch (10/08/20 08:45) Nitroglycerin 0.4 Mg Btl 25's (Nitrostat (10/08/20 08:38) Aspirin Chewable Tablet (Baby Aspirin Ch (10/08/20 08:38) Ua Culture If Indicated (10/08/20 08:45) Drug Screen Stat (Urine) (10/08/20 08:45) Lactated Ringers (Lr 1000 Ml Iv Solution (10/08/20 09:22) Ct Abdomen/Pelvis W (10/08/20 09:29) Iohexol Injection (Omnipaque 350 Mg/Ml 1 (10/08/20 09:45) Received Contrast (Hold Metformin- Contr (10/08/20 09:45) Sodium Chloride Flush (Catheter Flush Sy (10/08/20 09:45) Ns (Ivpb) (Sodium Chloride 0.9% Ivpb Bag (10/08/20 09:45) Triglycerides (10/08/20 10:25) Medications Given in ED Current Medications Medications Dose Ordered Sig/Rafael Route Start Time Stop Time Status Last Admin Dose Admin Aspirin 162 mg ONCE ONCE PO 10/08/20 08:45 10/08/20 08:46 DC 10/08/20 08:49 162 MG Iohexol 100 ml ONCE ONCE IV 10/08/20 09:45 10/08/20 09:46 DC 10/08/20 09:43 92 ML Nitroglycerin 0.4 mg UD PRN SL 10/08/20 08:45 10/08/20 08:49 0.4 MG Sodium Chloride 10 ml NEEDED PRN IV 10/08/20 09:45 10/08/20 09:43 10 ML Sodium Chloride 100 ml ONCE ONCE IV 10/08/20 09:45 10/08/20 09:46 DC 10/08/20 09:43 80 ML Vital Signs/I&O 10/08/20 10/08/20 08:43 08:54 Temp 36.5 Pulse 88 96 Resp 18 16 B/P (MAP) 141/100 (114) 113/96 (102) Pulse Ox 98 96 O2 Delivery Room Air Progress Progress Note #1: Time: 08:51 Progress Note We will give him another 2 x 81 mg aspirin to chew and swallow and try some nitroglycerin for his 8 out of 10 chest pain. Concerning for coronary disease. He has some unknown risk factors and significant family history. Even with a negative troponin 6 hours after the pain started his heart score would be 5 points. High risk; 12-65% 30-day MACE. Admit to hospital or observation. Further testing indicated. Differential includes cardiac, GI, radiculopathy. His EKG findings of a subtle half block elevation in leads II, and III are conserved from previous EKGs in 2018. After a single dose of nitroglycerin his pain went from a 4 down to a 0 out of 10. Progress Note #2: Time: 09:31 Progress Note The patient is still pain and nausea free. His abdomen is nontender to examination. His elevated lipase is confounding from his history so were going to get a CT of the abdomen and pelvis with IV contrast give him a liter of lactated Ringer's and evaluate the character of the pancreas. There is no elevated troponin or bilirubin/transaminitis which might indicate an obstructed duct. Initial ECG Impression Date: Oct 08, 2020 Initial ECG Impression Time: 08:39 Initial ECG Rate: 82 Initial ECG Rhythm: Normal Sinus Initial ECG Intervals: Normal Initial ECG Impression: Normal, Nonspecific Changes Initial ECG Comparisson: Unchanged Comment Sinus rhythm without clinically relevant ST elevation or depression. There is a subtle half block elevation in leads II and III which are conserved from EKGs seen in 2018. Diagnostic Imaging Diagonstic Imaging: Xray Plain Films/CT/US/NM/MRI: chest Comments NAME: MARBELLA SHERIFF MED REC#: [id number] PT STATUS: REG ER : 1970 PHYSICIAN: RAZIA ROMANO MD ADMIT DATE: 10/08/20/ER Draft Date of Exam:10/08/20 CHEST 1 VIEW, AP/PA ONLY INDICATION: Chest pain Frontal chest obtained at 0857 a.m. and compared to 09/06/17. Heart and mediastinal silhouette are normal in appearance. The lungs are clear. There is no pneumothorax or pleural fluid. IMPRESSION: Negative chest. Dictated on workstation # [id number] Dict: 10/08/20 0907 Trans: 10/08/20 0912 [facility] [id number] Interpreted by: CHRISTINE SANCHEZ MD Electronically signed by: Reviewed: Reviewed by Me Diagonstic Imaging: CT Plain Films/CT/US/NM/MRI: abdomen, pelvis Comments NAME: MARBELLA SHERIFF [facility] REC#: [id number] PT STATUS: REG ER : 1970 PHYSICIAN: RAZIA ROMANO MD ADMIT DATE: 10/08/20/ER Draft Date of Exam:10/08/20 CT ABDOMEN/PELVIS W PROCEDURE: CT abdomen and pelvis with contrast. TECHNIQUE: Multiple contiguous axial images were obtained through the abdomen and pelvis after administration of intravenous contrast. Auto Exposure Controls were utilized during the CT exam to meet ALARA standards for radiation dose reduction. All CT scans use one or more of the following dose optimizing techniques: automated exposure control, MA and/or KvP adjustment based on patient size and exam type or iterative reconstruction. INDICATION: Chest pain. Elevated lipase. Hypertension. COMPARISON: 05/31/2014. FINDINGS: Included portions of the lung bases are clear. CT abdomen: There is colonic diverticulosis, but no CT evidence of acute diverticulitis. Normal appendix is identified. Note is made of moderate lipomatosis of the distal small bowel. Small bowel loops are nondistended. Punctate nonobstructive left renal calculus is noted. No renal calculi seen on the right. No ureteral calculi identified on either side. Additionally, there is no hydronephrosis or other evidence of obstruction. Benign-appearing right renal cyst is noted. Liver appears diffusely hypodense on this postcontrast exam suggestive of underlying hepatic steatosis. No focal hepatic masses are seen. There is cholelithiasis. There is no gallbladder wall thickening. There is no pericholecystic free fluid to suggest acute cholecystitis. Pancreas, adrenal glands, and spleen have a normal appearance. No loculated fluid collection, free fluid or free air is seen within the abdomen. No abnormal mesenteric or retroperitoneal adenopathy is identified. Osseous structures show no acute abnormalities. CT pelvis: Urinary bladder is grossly unremarkable. Prostate is moderately enlarged. It measures 5.5 x 4.6 cm in axial dimension. No loculated fluid collection, free fluid or free air is seen within the pelvis. No abnormal adenopathy is identified. Osseous structures show no acute abnormalities. IMPRESSION: 1. No acute abnormalities are seen within the abdomen or pelvis. 2. Moderate lipomatosis of the distal small bowel. Findings are nonspecific, but can be seen with states of chronic inflammation. Correlation with inflammatory bowel disease is recommended. 3. Colonic line diverticulosis, no CT evidence acute diverticulitis. 4. Cholelithiasis, but no CT evidence of acute cholecystitis. 5. Nonobstructive left renal calculus. 6. Prostatomegaly. Dictated on workstation # [id number] Dict: 10/08/20 1001 Trans: 10/08/20 1015 [facility] [id number] Interpreted by: GABRIELE ARGUELLO MD Electronically signed by: Reviewed: Reviewed by Me Departure Communication (Admissions) Time/Spoke to Admitting Phy: 10:35 Discussed the case with Dr. Barajas as well as elevated lipase and methamphetamines. He is agreeable to observe the patient with cardiology consult. Time/Spoke to Consulting Phy: 10:30 Discussed the case with Dr. Tidwell and our concerns with his family history and resolution of pain with nitroglycerin. Discussed the lipase and methamphetamines and he agrees the risk for coronary disease is sufficient to observe the patient on telemetry and he would like to get a stress echocardiogram this afternoon. He would like the patient to remain n.p.o. Impression Primary Impression: Acute coronary syndrome without high troponin Additional Impression: Serum lipase elevation Disposition: ADMITTED INPATIENT Condition: Stable Admissions Decision to Admit Reason: Admit from ER (General) Decision to Admit/Date: Oct 08, 2020 Time/Decision to Admit Time: 10:30 Departure-Patient Inst. Referrals: NO,LOCAL PHYSICIAN (PCP/Family) Primary Care Physician RAZIA ROMANO Oct 08, 2020 08:55
[2020-10-08 08:57] LABS: ALBUMIN 4.2 GM/DL (3.2-4.5); CHLORIDE 104 MMOL/L (98-107); SODIUM 138 MMOL/L (135-145)
[2020-10-08 08:58] LABS: INR 0.9 (0.8-1.4); PROTHROMBIN TIME PATIENT 12.6 SEC (12.2-14.7)
[2020-10-08 08:59] LABS: GLUCOSE 97 MG/DL (70-105); TOTAL PROTEIN 7.3 GM/DL (6.4-8.2)
[2020-10-08 09:00] LABS: CARBON DIOXIDE 20 MMOL/L (21-32)
[2020-10-08 09:01] LABS: BILIRUBIN,TOTAL 0.7 MG/DL (0.1-1.0)
[2020-10-08 09:03] LABS: ALKALINE PHOSPHATASE 57 U/L (40-136); CREATININE SERUM 0.94 MG/DL (0.60-1.30); GFR ESTIMATED > 60
[2020-10-08 09:04] LABS: BUN/CREATININE RATIO 22
[2020-10-08 09:06] LABS: ALANINE AMINOTRANSFERASE 27 U/L (0-55); MAGNESIUM 2.2 MG/DL (1.6-2.4)
[2020-10-08 09:07] LABS: LIPASE 281 U/L (8-78)
--- NOTE | 2020-10-08 09:13 | Diagnostic Imaging Report ---
INDICATION: Chest pain Frontal chest obtained at 0857 a.m. and compared to 09/06/17. Heart and mediastinal silhouette are normal in appearance. The lungs are clear. There is no pneumothorax or pleural fluid. IMPRESSION: Negative chest. Dictated by: Dictated on workstation # [id number]
[2020-10-08] MEDS ORDERED: LACTATED RINGERS 1,000 ML IV STA (09:22)
[2020-10-08 09:30] LABS: BILIRUBIN,URINE NEGATIVE (NEGATIVE); CLARITY,URINE CLEAR; COLOR,URINE YELLOW; GLUCOSE, URINE (UA) NEGATIVE (NEGATIVE); KETONES,URINE NEGATIVE (NEGATIVE); LEUKOCYTE ESTERASE ,URINE NEGATIVE (NEGATIVE); NITRITE,URINE NEGATIVE (NEGATIVE); PH,URINE 6.5 (5-9); PROTEIN,URINE NEGATIVE (NEGATIVE)
[2020-10-08 09:43] LABS: AMPHETAMINE SCREEN, URINE NEGATIVE (NEGATIVE); BARBITURATE SCREEN URINE NEGATIVE (NEGATIVE); BENZODIAZEPINES SCREEN URINE NEGATIVE (NEGATIVE); CANNABINOID SCREEN, URINE NEGATIVE (NEGATIVE); COCAINE SCREEN URINE NEGATIVE (NEGATIVE); METHADONE STAT NEGATIVE (NEGATIVE); METHAMPHETAMINE SCREEN URINE S POSITIVE (NEGATIVE); OPIATE SCREEN URINE NEGATIVE (NEGATIVE); OXYCODONE STAT NEGATIVE (NEGATIVE); PROPOXYPHENE STAT NEGATIVE (NEGATIVE); TRICYCLIC ANTIDEPRESSANTS SCRE NEGATIVE (NEGATIVE)
[2020-10-08] MEDS ORDERED: NS 100 ML (IVPB) BAG IV ONE (09:45)
[2020-10-08] MEDS ORDERED: IOHEXOL 350 MG/ML 100 ML (OMNIPAQUE 350) VIAL IV ONE (09:45)
[2020-10-08] MEDS ORDERED: HOLD METFORMIN - RECEIVED CONTRAST 20 ML VIAL IV SCH (09:45)
[2020-10-08] MEDS ORDERED: CATHETER FLUSH 10 ML SYR IV PRN (09:45)
[2020-10-08 09:46] LABS: AMORPHOUS SEDIMENT,UR RARE AMOR URATES /LPF; BACTERIA,URINE NEGATIVE /HPF; WBC,URINE RARE /HPF
--- NOTE | 2020-10-08 10:16 | Diagnostic Imaging Report ---
PROCEDURE: CT abdomen and pelvis with contrast. TECHNIQUE: Multiple contiguous axial images were obtained through the abdomen and pelvis after administration of intravenous contrast. Auto Exposure Controls were utilized during the CT exam to meet ALARA standards for radiation dose reduction. All CT scans use one or more of the following dose optimizing techniques: automated exposure control, MA and/or KvP adjustment based on patient size and exam type or iterative reconstruction. INDICATION: Chest pain. Elevated lipase. Hypertension. COMPARISON: 05/31/2014. FINDINGS: Included portions of the lung bases are clear. CT abdomen: There is colonic diverticulosis, but no CT evidence of acute diverticulitis. Normal appendix is identified. Note is made of moderate lipomatosis of the distal small bowel. Small bowel loops are nondistended. Punctate nonobstructive left renal calculus is noted. No renal calculi seen on the right. No ureteral calculi identified on either side. Additionally, there is no hydronephrosis or other evidence of obstruction. Benign-appearing right renal cyst is noted. Liver appears diffusely hypodense on this postcontrast exam suggestive of underlying hepatic steatosis. No focal hepatic masses are seen. There is cholelithiasis. There is no gallbladder wall thickening. There is no pericholecystic free fluid to suggest acute cholecystitis. Pancreas, adrenal glands, and spleen have a normal appearance. No loculated fluid collection, free fluid or free air is seen within the abdomen. No abnormal mesenteric or retroperitoneal adenopathy is identified. Osseous structures show no acute abnormalities. CT pelvis: Urinary bladder is grossly unremarkable. Prostate is moderately enlarged. It measures 5.5 x 4.6 cm in axial dimension. No loculated fluid collection, free fluid or free air is seen within the pelvis. No abnormal adenopathy is identified. Osseous structures show no acute abnormalities. IMPRESSION: 1. No acute abnormalities are seen within the abdomen or pelvis. 2. Moderate lipomatosis of the distal small bowel. Findings are nonspecific, but can be seen with states of chronic inflammation. Correlation with inflammatory bowel disease is recommended. 3. Colonic line diverticulosis, no CT evidence acute diverticulitis. 4. Cholelithiasis, but no CT evidence of acute cholecystitis. 5. Nonobstructive left renal calculus. 6. Prostatomegaly. Dictated by: Dictated on workstation # [id number]
[2020-10-08 10:42] VITALS: BP 121/87
[2020-10-08] MEDS ORDERED: morphine INJ 4 MG/ML 1 ML (VIAL/SYRINGE) IV PRN (11:45)
[2020-10-08] MEDS ORDERED: LORazepam INJ 2 MG/ML (ATIVAN) VIAL IV PRN (11:45)
[2020-10-08] MEDS ORDERED: ONDANSETRON 4 MG/2 ML (SDV) Z0FRAN IV PRN (11:45)
[2020-10-08] MEDS ORDERED: ASPIRIN E.C. 81 MG (ECOTRIN) TAB PO SCH (12:00)
--- NOTE | 2020-10-08 13:08 | Consultation-Cardiology ---
HPI-Cardiology Cardiology Consultation Date of Consultation 10/08/20 Date of Admission Time Seen by Provider: 13:04 Indication: Chest pain HPI 50 years old gentleman with no significant past medical history, started to have chest pain described as dull in nature on the left side of his chest radiating to the left arm, no shortness of breath. No palpitation, came into the emergen cy room, reported improvement. Noted to have elevation in lipase level. Currently chest pain-free. No similar episodes in the past Home Medications & Allergies Allergies: Coded Allergies: No Known Drug Allergies (Unverified , 04/27/16) Home Medication List Reviewed: Yes Does not take any medication at home [id number]-Gduytv-Slcvec Hx Patient Social History Marital Status: Recreational Drug Use: No Drug of Choice: Denies Smoking Status: Never a Smoker Type Used: Electronic/Vapor Recent Hopitalizations: No Have you traveled recently?: No Alcohol Use?: Yes Immunizations Up To Date Tetanus Booster (TDap): Less than 5yrs Past Medical History Discussed below Family Medical History Significant Family History: No Pertinent Family Hx Family History: Arthritis 19 MOTHER Neoplasm 19 MOTHER Parkinson's disease 19 FATHER No Family History of: AIDS Abdominal aortic aneurysm Idamay's disease Alcoholism Alzheimer's disease Aphasia Asthma Cancer of mouth Cardiovascular disease Cataracts Colon cancer Completed stroke Congenital disease Congenital heart disease Coronary thrombosis Cystic fibrosis Deafness or hearing loss Dementia Diabetes mellitus Drug abuse Dysphasia Fibrocystic disease of breast Gastroenteritis Glaucoma Headache disorder Hypercholesterolemia Hypertension Infertility Kidney disease Myocardial infarction Not obtainable due to adoption Osteoporosis Prostate cancer Psychosocial problem Respiratory disorder Seizure disorder Severe allergy Thyroid disease Tuberculosis Visual disorder Review of Systems-General Review of Systems Constitutional: No chills, No diaphoresis EENTM: see HPI, no symptoms reported Respiratory: see HPI; No cough, No dyspnea on exertion, No hemoptysis, No or thopnea, No phlegm, No short of breath, No stridor, No wheezing, No other Cardiovascular: see HPI, chest pain; No edema, No Hx of Intervention, No palpitations, No syncope, No vascular heart diseas, No other Gastrointestinal: no symptoms reported, see HPI Genitourinary: no symptoms reported, see HPI Musculoskeletal: No back pain, No joint pain Skin: no symptoms reported, see HPI Psychiatric/Neurological: Denies Anxiety, Denies Depressed All Other Systems Reviewed Negative Unless Noted: Yes Reviewed Test Results Reviewed Test Results Lab Laboratory Tests Test 10/08/20 08:40 10/08/20 09:24 10/08/20 12:02 Range/Units White Blood Count 9.6 4.3-11.0 10^3/uL Red Blood Count 5.55 H 4.30-5.52 10^6/uL Hemoglobin 16.6 13.3-17.7 g/dL Hematocrit 49 40-54 % Mean Corpuscular Volume 88 80-99 fL Mean Corpuscular Hemoglobin 30 25-34 pg Mean Corpuscular Hemoglobin Concent 34 32-36 g/dL Red Cell Distribution Width 13.2 10.0-14.5 % Platelet Count 319 130-400 10^3/uL Mean Platelet Volume 9.1 9.0-12.2 fL Immature Granulocyte % (Auto) 1 % Neutrophils (%) (Auto) 68 42-75 % Lymphocytes (%) (Auto) 18 12-44 % Monocytes (%) (Auto) 10 0-12 % Eosinophils (%) (Auto) 2 0-10 % Basophils (%) (Auto) 1 0-10 % Neutrophils # (Auto) 6.5 1.8-7.8 10^3/uL Lymphocytes # (Auto) 1.7 1.0-4.0 10^3/uL Monocytes # (Auto) 1.0 0.0-1.0 10^3/uL Eosinophils # (Auto) 0.2 0.0-0.3 10^3/uL Basophils # (Auto) 0.1 0.0-0.1 10^3/uL Immature Granulocyte # (Auto) 0.1 0.0-0.1 10^3/uL Prothrombin Time 12.6 12.2-14.7 SEC INR Comment 0.9 0.8-1.4 Activated Partial Thromboplast Time 31 24-35 SEC Sodium Level 138 135-145 MMOL/L Potassium Level 4.0 3.6-5.0 MMOL/L Chloride Level 104 98-107 MMOL/L Carbon Dioxide Level 20 L 21-32 MMOL/L Anion Gap 14 5-14 MMOL/L Blood Urea Nitrogen 21 H 7-18 MG/DL Creatinine 0.94 0.60-1.30 MG/DL Estimat Glomerular Filtration Rate > 60 BUN/Creatinine Ratio 22 Glucose Level 97 70-105 MG/DL Calcium Level 9.0 8.5-10.1 MG/DL Corrected Calcium 8.8 8.5-10.1 MG/DL Magnesium Level 2.2 1.6-2.4 MG/DL Total Bilirubin 0.7 0.1-1.0 MG/DL Aspartate Amino Transf (AST/SGOT) 18 5-34 U/L Alanine Aminotransferase (ALT/SGPT) 27 0-55 U/L Alkaline Phosphatase 57 40-136 U/L Myoglobin 136.2 H 10.0-92.0 NG/ML Troponin I < 0.028 < 0.028 <0.028 NG/ML Total Protein 7.3 6.4-8.2 GM/DL Albumin 4.2 3.2-4.5 GM/DL Triglycerides Level 171 H <150 MG/DL Lipase 281 H 8-78 U/L Urine Color YELLOW Urine Clarity CLEAR Urine pH 6.5 5-9 Urine Specific [place] >=1.030 1.016-1.022 Urine Protein NEGATIVE NEGATIVE Urine Glucose (UA) NEGATIVE NEGATIVE Urine Ketones NEGATIVE NEGATIVE Urine Nitrite NEGATIVE NEGATIVE Urine Bilirubin NEGATIVE NEGATIVE Urine Urobilinogen 0.2 < = 1.0 MG/DL Urine Leukocyte Esterase NEGATIVE NEGATIVE Urine RBC (Auto) NEGATIVE NEGATIVE Urine RBC 5-10 H /HPF Urine WBC RARE /HPF Urine Squamous Epithelial Cells NONE /HPF Urine Crystals PRESENT H /LPF Urine Amorphous Sediment RARE CHRISSIE URATES H /LPF Urine Bacteria NEGATIVE /HPF Urine Casts NONE /LPF Urine Mucus LARGE H /LPF Urine Culture Indicated NO Urine Opiates Screen NEGATIVE NEGATIVE Urine Oxycodone Screen NEGATIVE NEGATIVE Urine Methadone Screen NEGATIVE NEGATIVE Urine Propoxyphene Screen NEGATIVE NEGATIVE Urine Barbiturates Screen NEGATIVE NEGATIVE Ur Tricyclic Antidepressants Screen NEGATIVE NEGATIVE Urine Phencyclidine Screen NEGATIVE NEGATIVE Urine Amphetamines Screen NEGATIVE NEGATIVE Urine Methamphetamines Screen POSITIVE H NEGATIVE Urine Benzodiazepines Screen NEGATIVE NEGATIVE Urine Cocaine Screen NEGATIVE NEGATIVE Urine Cannabinoids Screen NEGATIVE NEGATIVE Physical Exam Physical Exam Vital Signs Vital Signs - First Documented 10/08/20 08:43 Temp 36.5 Pulse 88 Resp 18 B/P (MAP) 141/100 (114) Pulse Ox 98 O2 Delivery Room Air Capillary Refill : Less Than 3 Seconds Height, Weight, BMI Height: 5'8.00" Weight: 150lbs. 0.0oz. [id number]; 25.81 BMI Method:Stated General Appearance: WD/WN, Mild Distress Eyes: Bilateral Eye Normal Inspection, Bilateral Eye PERRL, Bilateral Eye EOMI HEENT: PERRL/EOMI, Pharynx Normal, Moist Mucous Membranes Neck: Full Range of Motion, Normal Inspection Respiratory: Lungs Clear, Normal Breath Sounds, No Accessory Muscle Use, No Respiratory Distress Cardiovascular: Regular Rate, Rhythm, No Edema, Normal Peripheral Pulses Gastrointestinal: Normal Bowel Sounds, Non Tender, Soft Back: Normal Inspection, No CVA Tenderness, No Vertebral Tenderness Extremity: Normal Capillary Refill, Normal Inspection, No Pedal Edema Neurologic/Psychiatric: Alert, Oriented x3 Skin: Normal Color, Warm/Dry Lymphatic: No Adenopathy A/P-Cardiology Admission Diagnosis Chest pain Hyperlipidemia Elevated lipase level Assessment/Plan Chest pain nonspecific etiology, atypical in presentation, cardiac enzymes and EKG did not show any acute abnormality, discussed the management plan, decided to proceed with stress test. Patient underwent exercise echocardiogram stress test, was able to exercise for 10-minute on Josue protocol, no EKG changes, normal echocardiographic images, negative stress test. Mild elevation in lipase level. Managed by primary care physician Hypertriglyceridemia. Managed by primary care physician GLADYS SILVA MD Oct 08, 2020 13:08
[2020-10-08] MEDS ORDERED: IBUP-30 PO (14:31)
[2020-10-08] MEDS ORDERED: CARB12DR OP (14:31)
[2020-10-08] MEDS ORDERED: OMEP20TA33 PO (14:31)
[2020-10-08] MEDS ORDERED: MELA5TAB14 PO (14:31)
--- NOTE | 2020-10-29 07:00 | Short Stay Summary ---
Discharge Summary Hospital Course Problems/Dx: (1) Chest pain Qualifiers: Qualified Codes: R07.89 - Other chest pain Final Diagnosis: Non cardiac chest pain Hospital Course Date of Admission: Oct 08, 2020 at 11:52 Admission Diagnosis : Chest pain Family Physician/Provider: Abbie Braun Physician Date of Discharge: 10/29/20 Discharge Diagnosis: Non cardiac chest pain Hospital Course: Isra Angel is a 50 year old male who presented with chest pain. He was evaluated with EKG and troponins which were unremarkable. Cardiology was consulted and assisted with his care. He underwent a stress test which was negative. His course was complicated by slightly elevated lipase. He underwent CT which showed no pancreatitis or any other acute process, but did show cholelithiasis, nephrolithiasis, diverticulosis, and prostatomegaly. His toxicol ogy screen was positive for methamphetamines, but he consistently denied any illicit drug use. He should follow up with his PCP in 1-2 weeks. He was discharged home in stable condition. Labs and Pending Lab Test: Home Meds Active Reported Refresh Contacts (Carboxymethylcellulose Sodium) 12 Ml Drops 1-2 Drops OP PRN PRN Prilosec Otc (Omeprazole Magnesium) 20 Mg Tablet.dr 20 Mg PO DAILY PRN Advil (Ibuprofen) 200 Mg Tablet 400-600 Mg PO Q8H PRN Melatonin 5 Mg Tablet 5 Mg PO HS PRN Assessment/Pt Instructions Take medications as prescribed. Follow up with your PCP. Return with worsening symptoms. Discharge Instructions Discharge Diet: No Restrictions Activity as Tolerated: Yes Consultations Cardiology Discharge Physical Examination Allergies: Coded Allergies: No Known Drug Allergies (Unverified , 04/27/16) Discharge Summary Date of Admission Oct 08, 2020 at 11:52 Date of Discharge Oct 08, 2020 at 17:25 Discharge Date: Oct 08, 2020 Discharge Time: 17:25 Admission Diagnosis Chest pain Consults/Procedures Consulations Cardiology Procedures Stress Test Discharge Diagnosis (1) Chest pain Qualifiers: Qualified Codes: R07.89 - Other chest pain MARÍA ELENA JACINTO MD Oct 29, 2020 06:58
== END 2020-10-08 17:25 | disposition home or self-care (01) ==
LOC: EDUNIT# 08:30 → ER 08:32 → UNDOADMOB 10:40 → CSD 10:40 → UNDODISOB 18:10
PROVIDERS: ADMIT Internal Medicine; ATTEND Internal Medicine
DX: R07.89 Other chest pain (principal); I10 Essential (primary) hypertension; K21.9 Gastro-esophageal reflux disease without esophagitis; K92.2 Gastrointestinal hemorrhage, unspecified; I24.9 Acute ischemic heart disease, unspecified; E78.5 Hyperlipidemia, unspecified; E78.1 Pure hyperglyceridemia; Z87.891 Personal history of nicotine dependence; Z80.9 Family history of malignant neoplasm, unspecified
CPT/HCPCS: 36415; 71045; 74177; 80053; 80306; 81000; 83690; 83735; 83874; 84478; 84484; 85025; 85610; 85730; 93005; 93041; 93351

== ENCOUNTER 2020-10-29 05:35 | Outpatient (CLI) | payer BC ==
[~2020-10-29] VITALS: Ht 165.1 cm; Wt 73.4 kg
[~2020-10-29 05:35] MED LIST changes: +CARB12DR OP; +IBUP-30 PO; +MELA5TAB14 PO; +OMEP20TA33 PO
[2020-11-02] MEDS ORDERED: METR500T PO (12:32)
[2020-11-02] MEDS ORDERED: ACHD5005 PO (12:32)
[2020-11-02] MEDS ORDERED: CIPR500T5 PO (12:32)
[2020-11-02] MEDS ORDERED: ONDA4TAB11 PO (12:33)
== END 2020-11-02 10:51 | disposition home or self-care (01) ==
LOC: MERGE 05:35 → PREOP 05:35
PROVIDERS: ATTEND Surgery
DX: Z01.818 Encounter for other preprocedural examination (principal)

== ENCOUNTER 2020-11-02 10:33 | Emergency (ER) | payer BC ==
[~2020-11-02] VITALS: Ht 167 cm; Wt 73.0 kg
[2020-11-02] MEDS ORDERED: fentaNYL INJ 100 MCG/2 ML AMP IVP ONE (11:30)
[2020-11-02] MEDS ORDERED: NS IV 1000 ML 1,000 ML IV SCH (11:30)
--- NOTE | 2020-11-02 11:41 | ED Abdominal Pain ---
General Chief Complaint: Abdominal/GI Problems Stated Complaint: POSSIBLE BLOCKAGE Nursing Triage Note: PT PRESENTS TO ED VIA POV FROM HOME WITH COMPLAINTS OF LOWER ABDOMINAL PAIN AND CONSTIPATION SINCE YESTERDAY. PT REPORTS HE IS HAVING HIS GALLBALDDER REOMVED BY LIZBETH ON MONDAY DUE TO GALLSTONES. PT REPORTS HE USED AN EMEMA THIS AM WITH NO RESULTS. Sepsis Screen: No Definite Risk (JOHANA PATEL MED STUDENT) History of Present Illness Date Seen by Provider: Nov 02, 2020 Time Seen by Provider: 11:36 Initial Comments Patient is a 50-year-old male who presents to the emergency department with the chief complaint of lower abdominal pain and constipation. Patient states that his symptoms started yesterday. He describes the pain as a constant dull with intermittent cramping in his lower abdomen, with some radiation to his low back. He states he also feels a "blockage" and has been unable to pass gas or bowel movements. His last normal BM was 2 nights ago. He tried mixe-hwr-ftzwzof laxatives and an enema this morning without success. He last ate yesterday morning and has not eaten today. Denies black or bloody stools. Denies nausea or vomiting. He has history of neurofibromatosis. He presented to this ED on October 08 with chest pain, and workup incidentally found gallstones and diverticulosis. He is scheduled to have a cholecystectomy by Dr. Nieves in 3 days, and is concerned his current symptoms will interfere with the surgery. Denies fever, chills, chest pain, shortness of breath, symptoms. All other review of systems reviewed and are negative except stated above. Timing/Duration: 1-2 Days Severity/Quality: Moderate, Cramping, Dull Location: RLQ, LLQ Radiation: Back Activities at Onset: None Associated Symptoms: No Chest Pain, No Fever/Chills, No Nausea/Vomiting, No Swelling/Mass in Abdomen (JOHANA PATEL MED STUDENT) Allergies and Home Medications Allergies Coded Allergies: No Known Drug Allergies (Unverified , 04/27/16) Home Medications Carboxymethylcellulose Sodium 12 Ml Drops, 1-2 DROPS OP PRN PRN for DRY EYES, (Reported) Ciprofloxacin HCl 500 Mg Tablet, 500 MG PO BID Prescribed by: ELLEN FLORENTINO on 11/02/20 1232 Hydrocodone/Acetaminophen 1 Each Tablet, 1 TAB PO Q6H PRN for PAIN-MODERATE (5- 7) Prescribed by: ELLEN FLORENTINO on 11/02/20 1233 Ibuprofen 200 Mg Tablet, 400-600 MG PO Q8H PRN for PAIN-MILD (1-4), (Reported) Melatonin 5 Mg Tablet, 5 MG PO HS PRN for SLEEP, (Reported) Metronidazole 500 Mg Tablet, 500 MG PO TID Prescribed by: ELLEN FLORENTINO on 11/02/20 1232 Omeprazole Magnesium 20 Mg Tablet.dr, 20 MG PO DAILY PRN for HEARTBURN, (Reported) Ondansetron 4 Mg Tab.rapdis, 4 MG PO Q8H Prescribed by: ELLEN FLORENTINO on 11/02/20 1233 Patient Home Medication List Home Medication List Reviewed: Yes (ELLEN FLORENTINO MD) Review of Systems Review of Systems Constitutional: see HPI; No chills, No fever Respiratory: No Symptoms Reported Cardiovascular: No Symptoms Reported Gastrointestinal: See HPI, Abdomen Distended, Abdominal Pain; Denies Blood S treaked Stools; Constipated; Denies Diarrhea, Denies Nausea, Denies Rectal Bleeding, Denies Vomiting Genitourinary: No Symptoms Reported Musculoskeletal: no symptoms reported Skin: see HPI, other (neurofibromatosis) Psychiatric/Neurological: No Symptoms Reported Endocrine: No Symptoms Reported Hematologic/Lymphatic: No Symptoms Reported (JOHANA PATEL) All Other Systems Reviewed Negative Unless Noted: Yes (JOHANA PATEL) Past Fkuynyt-Ytlrkd-Rsjuaw Hx Patient Social History Alcohol Use: Denies Use Number of Drinks Today: AA Alcohol Beverage of Choice: Beer Drug of Choice: Denies Smoking Status: Never a Smoker Type Used: Electronic/Vapor Former Smoker, Quit: Jul 10, 1989 Recent Infectious Disease Expo: No Recent Hopitalizations: No (JOHANA PATEL STUDENT) Immunizations Up To Date Tetanus Booster (TDap): Less than 5yrs (JOHANA PATEL STUDENT) Seasonal Allergies Seasonal Allergies: No (JOHANA PATEL) Past Medical History Surgeries: Yes (INGUINAL HERNIA, MULTIPLE NEUROFIBROMAS REMOVED) Abdominal Respiratory: No Currently Using CPAP: No Cardiac: No Neurological: No Reproductive Disorders: No Sexually Transmitted Disease: No HIV/AIDS: No Genitourinary: No Gastrointestinal: Yes Gastroesophageal Reflux, Gall Bladder Disease Musculoskeletal: No Endocrine: No HEENT: No Loss of Vision: Bilateral Hearing Impairment: Denies Cancer: No Psychosocial: No Integumentary: Yes (NEUROFIBROMAS) Blood Disorders: No Adverse Reaction/Blood Tranf: No (N/A) (JOHANA PATEL STUDENT) Family Medical History Arthritis 19 MOTHER Neoplasm 19 MOTHER Parkinson's disease 19 FATHER No Family History of: AIDS Abdominal aortic aneurysm Greenwood's disease Alcoholism Alzheimer's disease Aphasia Asthma Cancer of mouth Cardiovascular disease Cataracts Colon cancer Completed stroke Congenital disease Congenital heart disease Coronary thrombosis Cystic fibrosis Deafness or hearing loss Dementia Diabetes mellitus Drug abuse Dysphasia Fibrocystic disease of breast Gastroenteritis Glaucoma Headache disorder Hypercholesterolemia Hypertension Infertility Kidney disease Myocardial infarction Not obtainable due to adoption Osteoporosis Prostate cancer Psychosocial problem Respiratory disorder Seizure disorder Severe allergy Thyroid disease Tuberculosis Visual disorder No Pertinent Family Hx (JOHANA PATEL) Physical Exam Vital Signs Vital Signs - First Documented 11/02/20 10:50 Temp 37.2 Pulse 116 Resp 20 B/P (MAP) 134/101 (112) Pulse Ox 95 (ELLEN FLORENTINO MD) Vital Signs Capillary Refill : Less Than 3 Seconds (JOHANA PATEL STUDENT) Height/Weight/BMI Height: 5'8.00" Weight: 150lbs. 0.0oz. [id number]; 26.00 BMI Method:Stated General Appearance: WD/WN, no apparent distress Respiratory: chest non-tender, lungs clear, normal breath sounds, no respiratory distress, no accessory muscle use Cardiovascular: normal peripheral pulses, regular rate, rhythm, no gallop, no murmur Gastrointestinal: normal bowel sounds, soft, no organomegaly, no pulsatile mass, distended (moderate distention), guarding (involuntary guarding), rebound (some rebound in LLQ), tenderness (moderate tenderness to palpation in RLQ, moderater to severe tenderness in LLQ); No hernia, No mass Extremities: normal inspection, no pedal edema, normal capillary refill Neurologic/Psychiatric: alert, normal mood/affect, oriented x 3 Skin: normal color, warm/dry, other (neurofibromas, surgical scars from previous removals of neurofibromas.) (JOHANA PATEL STUDENT) Procedures/Interventions Suture Size: 5-0 (JOHANA PATEL) Progress/Results/Core Measures Results/Orders Lab Results Laboratory Tests Test 11/02/20 10:45 Range/Units White Blood Count 16.8 H 4.3-11.0 10^3/uL Red Blood Count 5.63 H 4.30-5.52 10^6/uL Hemoglobin 16.8 13.3-17.7 g/dL Hematocrit 50 40-54 % Mean Corpuscular Volume 89 80-99 fL Mean Corpuscular Hemoglobin 30 25-34 pg Mean Corpuscular Hemoglobin Concent 34 32-36 g/dL Red Cell Distribution Width 13.2 10.0-14.5 % Platelet Count 340 130-400 10^3/uL Mean Platelet Volume 9.7 9.0-12.2 fL Immature Granulocyte % (Auto) 1 % Neutrophils (%) (Auto) 78 H 42-75 % Lymphocytes (%) (Auto) 12 12-44 % Monocytes (%) (Auto) 9 0-12 % Eosinophils (%) (Auto) 0 0-10 % Basophils (%) (Auto) 0 0-10 % Neutrophils # (Auto) 13.1 H 1.8-7.8 10^3/uL Lymphocytes # (Auto) 2.0 1.0-4.0 10^3/uL Monocytes # (Auto) 1.5 H 0.0-1.0 10^3/uL Eosinophils # (Auto) 0.0 0.0-0.3 10^3/uL Basophils # (Auto) 0.1 0.0-0.1 10^3/uL Immature Granulocyte # (Auto) 0.1 0.0-0.1 10^3/uL Neutrophils % (Manual) 76 % Lymphocytes % (Manual) 16 % Monocytes % (Manual) 8 % Blood Morphology Comment NORMAL Sodium Level 137 135-145 MMOL/L Potassium Level 3.9 3.6-5.0 MMOL/L Chloride Level 106 98-107 MMOL/L Carbon Dioxide Level 23 21-32 MMOL/L Anion Gap 8 5-14 MMOL/L Blood Urea Nitrogen 15 7-18 MG/DL Creatinine 0.84 0.60-1.30 MG/DL Estimat Glomerular Filtration Rate > 60 BUN/Creatinine Ratio 18 Glucose Level 105 70-105 MG/DL Calcium Level 9.4 8.5-10.1 MG/DL (ELLEN FLORENTINO MD) My Orders Orders - ELLEN FLORENTINO MD Cbc With Automated Diff (4/26/21 11:25) Basic Metabolic Panel (11/02/20 11:25) Ed Iv/Invasive Line Start (11/02/20 11:25) Ct Abdomen/Pelvis Wo (11/02/20 11:25) Fentanyl Inj (Sublimaze Injection) (11/02/20 11:30) Ns Iv 1000 Ml (Sodium Chloride 0.9%) (11/02/20 11:30) Manual Differential (11/02/20 10:45) (ELLEN FLORENTINO MD) Medications Given in ED Current Medications Medications Dose Ordered Sig/Rafael Route Start Time Stop Time Status Last Admin Dose Admin Fentanyl Citrate 25 mcg ONCE ONCE IVP 11/02/20 11:30 11/02/20 11:31 DC 11/02/20 11:59 25 MCG (ELLEN FLORENTINO MD) Vital Signs/I&O 11/02/20 10:50 Temp 37.2 Pulse 116 Resp 20 B/P (MAP) 134/101 (112) Pulse Ox 95 (ELLEN FLORENTINO MD) Blood Pressure Mean: 112 Progress Progress Note : Time: 12:28 Progress Note Discussed with Dr. Nieves on for general surgery and with whom the patient is scheduled to have surgery on to remove his gallbladder. Dr. Nieves is in agreements that his cholecystectomy will have to be put off for a few weeks. He is agreeable with the plan of Cipro and Tonny as outpatient management for this acute flare of diverticulitis. The patient has no evidence on CT scan of abscess or perforation at this time. We will control his pain at home with hydrocodone. We will give him nausea medicines just in case as well. Even though the patient denies nausea and vomiting at this time. Patient's vital signs are stable and improved. He looks well he still having some pain. He was given some fentanyl here in the emergency department. All questions are sought and answered. Patient is stable for discharge. (ELLEN FLORENTINO MD) Diagnostic Imaging Diagonstic Imaging: CT Plain Films/CT/US/NM/MRI: abdomen Comments [facility] [place], [place] NAME: MARBELLA [facility] REC#: [id number] PT STATUS: REG ER : 1970 PHYSICIAN: ELLEN FLORENTINO MD ADMIT DATE: 11/02/20/ER Draft Date of Exam:11/02/20 CT ABDOMEN/PELVIS WO PROCEDURE: CT abdomen and pelvis without contrast. TECHNIQUE: Multiple contiguous axial images were obtained through the abdomen and pelvis without the use of intravenous contrast. Auto Exposure Controls were utilized during the CT exam to meet ALARA standards for radiation dose reduction. INDICATION: Abdominal pain and constipation. COMPARISON: 10/08/2020 FINDINGS: Included portions of the lung bases are clear. CT ABDOMEN: Since the previous exam, there has been interval development of moderate stranding surrounding the mid sigmoid colon. There does appear to be some associated colonic wall thickening, although this portion of the colon is decompressed. Several diverticuli are also noted within this area. There is no pneumatosis, pneumoperitoneum, nor portal venous gas. There is no free fluid nor loculated air-fluid collection. Proximal large and small bowel loops are nondistended. Normal appendix is identified. Punctate nonobstructive calculus is again identified within the inferior pole of the left kidney. No renal calculi are seen on the right. No ureteral calculi are identified on either side. Additionally, there is no hydronephrosis or other evidence of obstruction. Gallstones are again identified. There is no pericholecystic free fluid. Liver, spleen, pancreas, and adrenal glands have an unremarkable noncontrast CT appearance. No abnormal mesenteric or retroperitoneal adenopathy is seen. Osseous structures show no acute abnormalities. CT PELVIS: Urinary bladder is unopacified. No calculi are seen within the urinary bladder. There is no loculated fluid collection, free fluid or free air within the pelvis. No abnormal lymph nodes are seen. Osseous structures show no acute abnormalities. IMPRESSION: 1. Interval development of moderate stranding surrounding the mid sigmoid colon. Given the presence of diverticula, acute diverticulitis is favored. Other nonspecific infectious or inflammatory colitis would be within the differential as well. Colonic neoplasm cannot be excluded. Correlation with colonoscopy is recommended when clinically appropriate. 2. No pneumatosis, pneumoperitoneum, portal venous gas, nor loculated air-fluid collection to suggest abscess. 3. Nonobstructive left renal calculus. 4. Cholelithiasis, but no CT evidence of acute cholecystitis. Dictated on workstation # [id number] Dict: 11/02/20 1145 Trans: 11/02/20 1153 [facility] [id number] Interpreted by: GABRIELE ARGUELLO MD Electronically signed by: (ELLEN FLORENTINO MD) Consults : Consulting Physician: FARHAT NIEVES DO Consults Notes Discussed with Dr. Nieves. Joan Guzmankelly for home. Follow-up in 2 weeks. (LELEN FLORENTINO MD) Departure Impression Primary Impression: Diverticulitis of intestine Qualified Codes: K57.32 - Diverticulitis of large intestine without perforation or abscess without bleeding Disposition: 01 HOME, SELF-CARE Condition: Stable Departure-Patient Inst. Decision time for Depature: 12:30 (ELLEN FLORENTINO MD) Referrals: NO,LOCAL PHYSICIAN (PCP/Family) Primary Care Physician Patient Instructions: Diverticulitis (DC) Add. Discharge Instructions: Drink plenty of fluids to stay well-hydrated. Take your antibiotics as scheduled for the next 10 days. Return to the emergency room for any increased or worsening pain, fever, vomiting or other emergent concerning symptoms. I have given you prescriptions for pain and nausea medications as well. Take these medications as needed. Scripts Ondansetron (Ondansetron Odt) 4 Mg Tab.rapdis 4 MG PO Q8H, #15 TAB Prov: ELLEN FLORENTINO MD 11/02/20 Hydrocodone/Acetaminophen (Hydrocodone-Acetamin 5-325 mg) 1 Each Tablet 1 TAB PO Q6H PRN for PAIN-MODERATE (5-7), #20 TAB Prov: ELLEN FLORENTINO MD 11/02/20 Metronidazole (Flagyl) 500 Mg Tablet 500 MG PO TID, #21 TAB Prov: ELLEN FLORENTINO MD 11/02/20 Ciprofloxacin HCl (Ciprofloxacin HCl) 500 Mg Tablet 500 MG PO BID, #20 TAB Prov: ELLEN FLORENTINO MD 11/02/20 I have seen and evaluated the patient as well as performed a history and physical exam. I performed the medical decision making on this patient. I do agree with the medical students documentation and plan of care. (ELLEN FLORENTINO MD) JOHANA PATEL MED STUDENT Nov 02, 2020 11:41 ELLEN FLORENTINO MD Nov 02, 2020 12:13
[2020-11-02 11:48] LABS: BASOPHILS # (AUTO) 0.1 10^3/uL (0.0-0.1); BASOPHILS % (AUTO) 0 % (0-10); EOSINOPHILS % (AUTO) 0 % (0-10); HEMATOCRIT 50 % (40-54); HEMOGLOBIN 16.8 g/dL (13.3-17.7); LYMPHOCYTES % (AUTO) 12 % (12-44); MEAN CORPUSCULAR HEMOGLOBIN 30 pg (25-34); MEAN CORPUSCULAR HGB CONC 34 g/dL (32-36); MEAN CORPUSCULAR VOLUME 89 fL (80-99); MEAN PLATELET VOLUME 9.7 fL (9.0-12.2); MONOCYTES # (AUTO) 1.5 10^3/uL (0.0-1.0); MONOCYTES % (AUTO) 9 % (0-12); NEUTROPHILS # (AUTO) 13.1 10^3/uL (1.8-7.8); NEUTROPHILS % (AUTO) 78 % (42-75); PLATELET COUNT 340 10^3/uL (130-400); WHITE BLOOD COUNT 16.8 10^3/uL (4.3-11.0)
--- NOTE | 2020-11-02 11:53 | Diagnostic Imaging Report ---
PROCEDURE: CT abdomen and pelvis without contrast. TECHNIQUE: Multiple contiguous axial images were obtained through the abdomen and pelvis without the use of intravenous contrast. Auto Exposure Controls were utilized during the CT exam to meet ALARA standards for radiation dose reduction. INDICATION: Abdominal pain and constipation. COMPARISON: 10/08/2020 FINDINGS: Included portions of the lung bases are clear. CT ABDOMEN: Since the previous exam, there has been interval development of moderate stranding surrounding the mid sigmoid colon. There does appear to be some associated colonic wall thickening, although this portion of the colon is decompressed. Several diverticuli are also noted within this area. There is no pneumatosis, pneumoperitoneum, nor portal venous gas. There is no free fluid nor loculated air-fluid collection. Proximal large and small bowel loops are nondistended. Normal appendix is identified. Punctate nonobstructive calculus is again identified within the inferior pole of the left kidney. No renal calculi are seen on the right. No ureteral calculi are identified on either side. Additionally, there is no hydronephrosis or other evidence of obstruction. Gallstones are again identified. There is no pericholecystic free fluid. Liver, spleen, pancreas, and adrenal glands have an unremarkable noncontrast CT appearance. No abnormal mesenteric or retroperitoneal adenopathy is seen. Osseous structures show no acute abnormalities. CT PELVIS: Urinary bladder is unopacified. No calculi are seen within the urinary bladder. There is no loculated fluid collection, free fluid or free air within the pelvis. No abnormal lymph nodes are seen. Osseous structures show no acute abnormalities. IMPRESSION: 1. Interval development of moderate stranding surrounding the mid sigmoid colon. Given the presence of diverticula, acute diverticulitis is favored. Other nonspecific infectious or inflammatory colitis would be within the differential as well. Colonic neoplasm cannot be excluded. Correlation with colonoscopy is recommended when clinically appropriate. 2. No pneumatosis, pneumoperitoneum, portal venous gas, nor loculated air-fluid collection to suggest abscess. 3. Nonobstructive left renal calculus. 4. Cholelithiasis, but no CT evidence of acute cholecystitis. Dictated by: Dictated on workstation # [id number]
[2020-11-02 12:10] LABS: NEUTROPHILS % (MANUAL) 76 %
[2020-11-02 12:11] LABS: LYMPHOCYTES % (MANUAL) 16 %; MONOCYTES % (MANUAL) 8 %; RBC MORPH NORMAL
[2020-11-02 12:20] LABS: BUN/CREATININE RATIO 18; CALCIUM 9.4 MG/DL (8.5-10.1); CARBON DIOXIDE 23 MMOL/L (21-32); CHLORIDE 106 MMOL/L (98-107); CREATININE SERUM 0.84 MG/DL (0.60-1.30); GFR ESTIMATED > 60; GLUCOSE 105 MG/DL (70-105); POTASSIUM 3.9 MMOL/L (3.6-5.0); SODIUM 137 MMOL/L (135-145)
[2020-11-02] MEDS ORDERED: METR500T PO (12:32)
[2020-11-02] MEDS ORDERED: ACHD5005 PO (12:32)
[2020-11-02] MEDS ORDERED: CIPR500T5 PO (12:32)
[2020-11-02] MEDS ORDERED: ONDA4TAB11 PO (12:33)
[2020-11-02] MEDS ORDERED: CIPROFLOXACIN 500 MG (CIPRO) TABLET PO ONE (12:34)
[2020-11-02 12:44] VITALS: BP 129/98
[2020-11-02] MEDS ORDERED: metroNIDAZOLE 500 MG (FLAGYL) TAB PO ONE (12:45)
[2020-11-02] MEDS ORDERED: CIPROFLOXACIN 500 MG (CIPRO) TABLET PO SCH (21:00)
== END 2020-11-02 12:44 | disposition home or self-care (01) ==
LOC: EDUNIT# 10:33 → ER 10:35
DX: K57.32 Diverticulitis of large intestine without perforation or abscess without bleeding (principal); K21.9 Gastro-esophageal reflux disease without esophagitis; Z87.891 Personal history of nicotine dependence
CPT/HCPCS: 36415; 74176; 80048; 85007; 85027

== ENCOUNTER 2020-11-18 03:48 | Emergency (ER) | payer BC ==
[~2020-11-18] VITALS: Ht 167 cm; Wt 73.0 kg
[~2020-11-18 03:48] MED LIST changes: +CIPR500T5 PO; +METR500T PO; +ONDA4TAB11 PO
[2020-11-18] MEDS ORDERED: LACTATED RINGERS 1,000 ML IV ONE (04:15)
[2020-11-18] MEDS ORDERED: KETOROLAC 30 MG/ML VIAL IVP STA (04:16)
--- NOTE | 2020-11-18 04:25 | ED Abdominal Pain ---
General Chief Complaint: Abdominal/GI Problems Stated Complaint: SEVERE ABD PAIN Nursing Triage Note: MID ABDOMINAL PAIN RADIATING TO BILATERAL FLANKS X2HRS. Sepsis Screen: No Definite Risk Source of Information: Patient History of Present Illness Date Seen by Provider: November 18, 2020 Time Seen by Provider: 04:08 Initial Comments PT ARRIVES VIA POV FROM WORK--WORKS AT [employer] PT C/O EPIGASTRIC ABDOMINAL PAIN, BEGAN A COUPLE OF HOURS AGO AT WORK--DENIES ANY INJURY OR HEAVY LIFTING OR UNUSUAL ACTIVITY AT WORK PAIN RADIATES TO MID BACK/BILATERAL FLANK AREAS + NAUSEA, NO VOMITING HAD NORMAL BM TONIGHT NO URINARY SYMPTOMS NO FEVER PT WAS ADMITTED 10/08/20 FOR CHEST PAIN AND WAS FOUND TO HAVE CHOLELITHIASIS AND DIVERTICULOSIS PT WAS SCHEDULED TO HAVE CHOLECYSTECTOMY ON 11/05/[address] NIEVES, BUT CAME TO ER 11/02/20 FOR LOWER ABDOMINAL PAIN AND WAS DIAGNOSED WITH ACUTE DIVERTICULITIS, AND SO SURGERY FOR GALLBLADDER WAS CANCELLED AND HAS NOT BEEN RESCHEDULED YET. STATES HE WAS PRESCRIBED 2 ANTIBIOTICS AND HYDROCODONE--HAS COMPLETED ALL OF THOSE MEDICATIONS HAS NEVER HAD A GALLBLADDER ATTACK TO HIS KNOWLEDGE PT STATES THIS IS NOT THE SAME PAIN HE HAD WITH THE DIVERTICULITIS HAS NOT TAKEN ANYTHING TONIGHT FOR PAIN LAST FOOD INTAKE WAS AROUND 2000 TONIGHT BEFORE HE WENT TO WORK. HAD BAKED CHICKEN AND COTTAGE CHEESE DID NOT EAT ANYTHING AT WORK HAS HAD PRIOR INGUINAL HERNIA REPAIR DONE PCP: NONE Allergies and Home Medications Allergies Coded Allergies: No Known Drug Allergies (Unverified , 04/27/16) Home Medications Carboxymethylcellulose Sodium 12 Ml Drops, 1-2 DROPS OP PRN PRN for DRY EYES, (Reported) Ciprofloxacin HCl 500 Mg Tablet, 500 MG PO BID Prescribed by: ELLEN FLORENTINO on 11/02/20 1232 Ciprofloxacin HCl 500 Mg Tablet, 500 MG PO BID Prescribed by: BELGICA MELO on 11/18/20 0605 Hydrocodone/Acetaminophen 1 Each Tablet, 1 TAB PO Q6H PRN for PAIN-MODERATE (5- 7) Prescribed by: ELLEN FLORENTINO on 11/02/20 1233 Hydrocodone/Acetaminophen 1 Each Tablet, 1 EACH PO Q4-6 HOURS PRN for PAIN Prescribed by: BELGICA MELO on 11/18/20 0605 Ibuprofen 200 Mg Tablet, 400-600 MG PO Q8H PRN for PAIN-MILD (1-4), (Reported) Melatonin 5 Mg Tablet, 5 MG PO HS PRN for SLEEP, (Reported) Metronidazole 500 Mg Tablet, 500 MG PO TID Prescribed by: ELLEN FLORENTINO on 11/02/20 1232 Metronidazole 500 Mg Tablet, 500 MG PO QID Prescribed by: BELGICA MELO on 11/18/20 06 Omeprazole Magnesium 20 Mg Tablet.dr, 20 MG PO DAILY PRN for HEARTBURN, (Reported) Ondansetron 4 Mg Tab.rapdis, 4 MG PO Q8H Prescribed by: ELLEN FLORENTINO on 11/02/20 1233 Ondansetron 4 Mg Tab.rapdis, 4 MG PO Q4H Prescribed by: BELGICA MELO on 11/18/20 06 Pantoprazole Sodium 40 Mg Tablet.dr, 40 MG PO DAILY Prescribed by: BELGICA MELO on 11/18/20 06 Patient Home Medication List Home Medication List Reviewed: Yes Review of Systems Review of Systems Constitutional: no symptoms reported Respiratory: No Symptoms Reported Cardiovascular: No Symptoms Reported Gastrointestinal: See HPI, Abdominal Pain; Denies Diarrhea; Nausea; Denies Vomiting Genitourinary: No Symptoms Reported Musculoskeletal: see HPI, back pain Skin: no symptoms reported Psychiatric/Neurological: No Symptoms Reported Endocrine: No Symptoms Reported Hematologic/Lymphatic: No Symptoms Reported Past Ggbvptc-Taskph-Odxdnf Hx Past Med/Social Hx: Reviewed and Corrections made Patient Social History Alcohol Use: Denies Use Number of Drinks Today: AA Alcohol Beverage of Choice: Beer Drug of Choice: DENIES BUT UDS + FOR METHAMPHETAMINES 10/08/20 Smoking Status: Current Everyday Smoker Type Used: Electronic/Vapor Recent Infectious Disease Expo: No Recent Hopitalizations: No Immunizations Up To Date Tetanus Booster (TDap): Less than 5yrs Seasonal Allergies Seasonal Allergies: No Past Medical History Surgeries: Yes (INGUINAL HERNIA, MULTIPLE NEUROFIBROMAS REMOVED) Abdominal Respiratory: No Currently Using CPAP: No Cardiac: No Neurological: Yes Headaches /Migraines Reproductive Disorders: No Sexually Transmitted Disease: No HIV/AIDS: No Genitourinary: Yes (KDINEY STONES NOTED ON CT SCAN 11/2020) Gastrointestinal: Yes (DIVERTICULITIS 10/2020) Gastroesophageal Reflux, Diverticulosis, Gall Bladder Disease Musculoskeletal: No Endocrine: No HEENT: No Loss of Vision: Bilateral Hearing Impairment: Denies Cancer: No Psychosocial: No Integumentary: Yes (NEUROFIBROMAS) Blood Disorders: No Adverse Reaction/Blood Tranf: No (N/A) Family Medical History Arthritis 19 MOTHER Neoplasm 19 MOTHER Parkinson's disease 19 FATHER No Family History of: AIDS Abdominal aortic aneurysm Breathitt's disease Alcoholism Alzheimer's disease Aphasia Asthma Cancer of mouth Cardiovascular disease Cataracts Colon cancer Completed stroke Congenital disease Congenital heart disease Coronary thrombosis Cystic fibrosis Deafness or hearing loss Dementia Diabetes mellitus Drug abuse Dysphasia Fibrocystic disease of breast Gastroenteritis Glaucoma Headache disorder Hypercholesterolemia Hypertension Infertility Kidney disease Myocardial infarction Not obtainable due to adoption Osteoporosis Prostate cancer Psychosocial problem Respiratory disorder Seizure disorder Severe allergy Thyroid disease Tuberculosis Visual disorder No Pertinent Family Hx Physical Exam Vital Signs Vital Signs - First Documented 11/18/20 04:08 Temp 36.3 Pulse 79 Resp 22 B/P (MAP) 154/113 (127) Pulse Ox 98 O2 Delivery Room Air Capillary Refill : Less Than 3 Seconds Height/Weight/BMI Height: 5'8.00" Weight: 150lbs. 0.0oz. 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5 % Platelet Count 362 130-400 10^3/uL Mean Platelet Volume 9.1 9.0-12.2 fL Immature Granulocyte % (Auto) 1 % Neutrophils (%) (Auto) 73 42-75 % Lymphocytes (%) (Auto) 16 12-44 % Monocytes (%) (Auto) 7 0-12 % Eosinophils (%) (Auto) 2 0-10 % Basophils (%) (Auto) 1 0-10 % Neutrophils # (Auto) 8.2 H 1.8-7.8 10^3/uL Lymphocytes # (Auto) 1.8 1.0-4.0 10^3/uL Monocytes # (Auto) 0.8 0.0-1.0 10^3/uL Eosinophils # (Auto) 0.2 0.0-0.3 10^3/uL Basophils # (Auto) 0.1 0.0-0.1 10^3/uL Immature Granulocyte # (Auto) 0.1 0.0-0.1 10^3/uL Urine Color YELLOW Urine Clarity CLEAR Urine pH 6.0 5-9 Urine Specific Riva >=1.030 1.016-1.022 Urine Protein NEGATIVE NEGATIVE Urine Glucose (UA) NEGATIVE NEGATIVE Urine Ketones NEGATIVE NEGATIVE Urine Nitrite NEGATIVE NEGATIVE Urine Bilirubin NEGATIVE NEGATIVE Urine Urobilinogen 0.2 < = 1.0 MG/DL Urine Leukocyte Esterase NEGATIVE NEGATIVE Urine RBC (Auto) 2+ H NEGATIVE Urine RBC 2-5 H /HPF Urine WBC 0-2 /HPF Urine Squamous Epithelial Cells 0-2 /HPF Urine Crystals NONE /LPF Urine Bacteria NEGATIVE /HPF Urine Casts NONE /LPF Urine Mucus NEGATIVE /LPF Urine Culture Indicated NO Sodium Level 141 135-145 MMOL/L Potassium Level 4.2 3.6-5.0 MMOL/L Chloride Level 109 H 98-107 MMOL/L Carbon Dioxide Level 19 L 21-32 MMOL/L Anion Gap 13 5-14 MMOL/L Blood Urea Nitrogen 28 H 7-18 MG/DL Creatinine 0.89 0.60-1.30 MG/DL Estimat Glomerular Filtration Rate > 60 BUN/Creatinine Ratio 31 Glucose Level 124 H 70-105 MG/DL Calcium Level 9.3 8.5-10.1 MG/DL Corrected Calcium 9.2 8.5-10.1 MG/DL Total Bilirubin 0.3 0.1-1.0 MG/DL Aspartate Amino Transf (AST/SGOT) 17 5-34 U/L Alanine Aminotransferase (ALT/SGPT) 29 0-55 U/L Alkaline Phosphatase 54 40-136 U/L Total Protein 7.4 6.4-8.2 GM/DL Albumin 4.1 3.2-4.5 GM/DL Amylase Level 132 H 25-125 U/L Lipase 35 8-78 U/L My Orders Orders - BELGICA MELO DO Ed Iv/Invasive Line Start (11/18/20 04:12) Amylase (11/18/20 04:12) Cbc With Automated Diff (11/18/20 04:12) Comprehensive Metabolic Panel (11/18/20 04:12) Lipase (11/18/20 04:12) Ua Culture If Indicated (11/18/20 04:12) Ed Iv/Invasive Line Start (11/18/20 04:12) Lactated Ringers (Lr 1000 Ml Iv Solution (11/18/20 04:15) Ondansetron Injection (Zofran Injectio (11/18/20 04:30) Ketorolac Injection (Toradol Injection) (11/18/20 04:16) Pantoprazole Injection (Protonix Injecti (11/18/20 04:30) Ct Abd/Pelv W (Appendicitis) (11/18/20 04:19) Acute Abd Series (11/18/20 04:19) Iohexol Injection (Omnipaque 350 Mg/Ml 1 (11/18/20 05:30) Received Contrast (Hold Metformin- Contr (11/18/20 05:30) Sodium Chloride Flush (Catheter Flush Sy (11/18/20 05:30) Ns (Ivpb) (Sodium Chloride 0.9% Ivpb Bag (11/18/20 05:30) Medications Given in ED Current Medications Medications Dose Ordered Sig/Rafael Route Start Time Stop Time Status Last Admin Dose Admin Iohexol 100 ml ONCE ONCE IV 11/18/20 05:30 11/18/20 05:31 DC 11/18/20 05:34 92 ML Lactated Ringer's 1,000 ml @ 0 mls/hr Q0M ONCE IV 11/18/20 04:15 11/18/20 04:16 DC 11/18/20 04:17 0 MLS/HR Ondansetron HCl 4 mg ONCE ONCE IVP 11/18/20 04:30 11/18/20 04:31 DC 11/18/20 04:22 4 MG Pantoprazole 40 mg ONCE ONCE IV 11/18/20 04:30 11/18/20 04:31 DC 11/18/20 04:22 40 MG Sodium Chloride 10 ml NEEDED PRN IV 11/18/20 05:30 11/18/20 05:34 10 ML Sodium Chloride 100 ml ONCE ONCE IV 11/18/20 05:30 11/18/20 05:31 DC 11/18/20 05:34 80 ML Vital Signs/I&O 11/18/20 11/18/20 04:08 04:22 Temp 36.3 36.3 Pulse 79 Resp 22 B/P (MAP) 154/113 (127) Pulse Ox 98 O2 Delivery Room Air Blood Pressure Mean: 127 Progress Progress Note : Progress Note GIVEN IV FLUIDS, ZOFRAN, PROTONIX AND TORADOL WITH SIGNIFICANT IMPROVEMENT IN SYMPTOMS Diagnostic Imaging Comments ABDOMEN XRAYS--NO ACUTE PROCESS, PENDING RADIOLOGIST REVIEW CT ABDOMEN/PELVIS--SINGLE GALLSTONE IN GALLBLADDER, NO WALL THICKENING OR BILIARY DILATATION. SCATTERED DIVERTICULOSIS OF DESCENDING AND SIGMOID COLON, WITH REJI-DIVERTICULAR FAT STRANDING IN SIGMOID COLON. NO PERFORATION OR ABSCESS . --PER [facility] VIA FAX AT 0524 Reviewed: Reviewed by Me Departure Impression Primary Impression: Abdominal pain Additional Impressions: Biliary colic Cholelithiasis Diverticulitis Disposition: HOME, SELF-CARE Condition: Improved Departure-Patient Inst. Decision time for Depature: 05:25 Referrals: FARHAT NIEVES DO NO,LOCAL PHYSICIAN (PCP) Primary Care Physician Patient Instructions: Gallstones (DC), Diverticulitis (DC) Add. Discharge Instructions: CLEAR LIQUIDS TODAY--WATER, BROTH, JELLO, GATORADE TOMORROW IF YOU ARE BETTER, ADD BRATS DIET TO CLEAR LIQUIDS--BANANAS, RICE, APPLESAUCE, TOAST, SALTINES FOLLOW UP WITH DR. NIEVES THIS WEEK FOR FURTHER CARE All discharge instructions reviewed with patient and/or family. Voiced understanding. Scripts Hydrocodone/Acetaminophen (Hydrocodone-Acetamin 5-325 mg) 1 Each Tablet 1 EACH PO Q4-6 HOURS PRN for PAIN, #20 TAB Prov: BELGICA MELO DO 11/18/20 Ondansetron (Ondansetron Odt) 4 Mg Tab.rapdis 4 MG PO Q4H for Nausea/Vomiting, #10 TAB Prov: BELGICA MELO DO 11/18/20 Pantoprazole Sodium (Protonix) 40 Mg Tablet.dr 40 MG PO DAILY, #15 TAB Prov: BELGICA MELO DO 11/18/20 Metronidazole (Flagyl) 500 Mg Tablet 500 MG PO QID, #40 TAB Prov: BELGICA MELO DO 11/18/20 Ciprofloxacin HCl (Cipro) 500 Mg Tablet 500 MG PO BID, #20 TAB Prov: BELGICA MELO DO 11/18/20 BELGICA MELO DO November 18, 2020 04:25
[2020-11-18 04:26] LABS: BASOPHILS # (AUTO) 0.1 10^3/uL (0.0-0.1); BASOPHILS % (AUTO) 1 % (0-10); EOSINOPHILS # (AUTO) 0.2 10^3/uL (0.0-0.3); EOSINOPHILS % (AUTO) 2 % (0-10); HEMATOCRIT 50 % (40-54); HEMOGLOBIN 16.7 g/dL (13.3-17.7); LYMPHOCYTES # (AUTO) 1.8 10^3/uL (1.0-4.0); LYMPHOCYTES % (AUTO) 16 % (12-44); MEAN CORPUSCULAR HEMOGLOBIN 30 pg (25-34); MEAN CORPUSCULAR HGB CONC 34 g/dL (32-36); MEAN CORPUSCULAR VOLUME 89 fL (80-99); MEAN PLATELET VOLUME 9.1 fL (9.0-12.2); MONOCYTES # (AUTO) 0.8 10^3/uL (0.0-1.0); MONOCYTES % (AUTO) 7 % (0-12); NEUTROPHILS # (AUTO) 8.2 10^3/uL (1.8-7.8); NEUTROPHILS % (AUTO) 73 % (42-75); PLATELET COUNT 362 10^3/uL (130-400); WHITE BLOOD COUNT 11.2 10^3/uL (4.3-11.0)
[2020-11-18 04:28] LABS: BILIRUBIN,URINE NEGATIVE (NEGATIVE); CLARITY,URINE CLEAR; COLOR,URINE YELLOW; GLUCOSE, URINE (UA) NEGATIVE (NEGATIVE); KETONES,URINE NEGATIVE (NEGATIVE); LEUKOCYTE ESTERASE ,URINE NEGATIVE (NEGATIVE); NITRITE,URINE NEGATIVE (NEGATIVE); PROTEIN,URINE NEGATIVE (NEGATIVE)
[2020-11-18] MEDS ORDERED: ONDANSETRON 4 MG/2 ML (SDV) Z0FRAN IVP ONE (04:30)
[2020-11-18] MEDS ORDERED: PANTOPRAZOLE 40 MG (PROTONIX) VIAL IV ONE (04:30)
[2020-11-18 04:38] LABS: BACTERIA,URINE NEGATIVE /HPF; SQUAMOUS EPITHELIAL CELL,UR 0-2 /HPF; WBC,URINE 0-2 /HPF
[2020-11-18 04:41] LABS: ALBUMIN 4.1 GM/DL (3.2-4.5); CHLORIDE 109 MMOL/L (98-107); POTASSIUM 4.2 MMOL/L (3.6-5.0); SODIUM 141 MMOL/L (135-145)
[2020-11-18 04:42] LABS: AMYLASE 132 U/L (25-125); CALCIUM 9.3 MG/DL (8.5-10.1)
[2020-11-18 04:43] LABS: GLUCOSE 124 MG/DL (70-105)
[2020-11-18 04:44] LABS: TOTAL PROTEIN 7.4 GM/DL (6.4-8.2)
[2020-11-18 04:45] LABS: BILIRUBIN,TOTAL 0.3 MG/DL (0.1-1.0); CARBON DIOXIDE 19 MMOL/L (21-32)
[2020-11-18 04:47] LABS: ALKALINE PHOSPHATASE 54 U/L (40-136); CREATININE SERUM 0.89 MG/DL (0.60-1.30); GFR ESTIMATED > 60
[2020-11-18 04:48] LABS: BUN/CREATININE RATIO 31
[2020-11-18 04:50] LABS: ALANINE AMINOTRANSFERASE 29 U/L (0-55)
[2020-11-18 04:51] LABS: LIPASE 35 U/L (8-78)
[2020-11-18] MEDS ORDERED: IOHEXOL 350 MG/ML 100 ML (OMNIPAQUE 350) VIAL IV ONE (05:30)
[2020-11-18] MEDS ORDERED: CATHETER FLUSH 10 ML SYR IV PRN (05:30)
[2020-11-18] MEDS ORDERED: HOLD METFORMIN - RECEIVED CONTRAST 20 ML VIAL IV SCH (05:30)
[2020-11-18] MEDS ORDERED: NS 100 ML (IVPB) BAG IV ONE (05:30)
[2020-11-18] MEDS ORDERED: ACHD5005 PO (06:05)
[2020-11-18] MEDS ORDERED: METR500T PO (06:05)
[2020-11-18] MEDS ORDERED: PANT40TA2 PO (06:05)
[2020-11-18] MEDS ORDERED: CIPR-225 PO (06:05)
[2020-11-18] MEDS ORDERED: ONDA4TAB11 PO (06:05)
--- NOTE | 2020-11-18 06:07 | Diagnostic Imaging Report ---
PROCEDURE: CT abdomen and pelvis with contrast, rule out appendicitis. TECHNIQUE: Multiple contiguous axial images were obtained through the abdomen and pelvis after the administration of intravenous contrast. All CT scans use one or more of the following dose optimizing techniques: automated exposure control, MA and/or KvP adjustment based on patient size and exam type or iterative reconstruction. INDICATION: Mid abdominal pain with radiation to bilateral flank x2 hours. CORRELATION STUDY: 11/02/2020 FINDINGS: LOWER THORAX: Clear. LIVER: Mild steatosis. More focal fatty infiltration along falciform ligament. GALLBLADDER: 13 mm gallstone. No bile duct dilatation. SPLEEN: Unremarkable. PANCREAS: Unremarkable. ADRENAL GLANDS: Unremarkable. KIDNEYS: Small non-obstructing nephrolithiasis inferior pole left kidney. Stable cortical cyst anterior cortex mid right kidney. ABDOMINAL AORTA: Unremarkable, nonaneurysmal. GASTROINTESTINAL TRACT: Scattered diverticuli of the colon particularly involving the descending and sigmoid colon. Peridiverticular fat stranding the region sigmoid colon. No obstruction. Negative for appendicitis. No abscess or free air. URINARY BLADDER: Unremarkable. REPRODUCTIVE: Prostate gland and seminal vesicles slightly prominent. OSSEOUS STRUCTURES: Unchanged dorsal scalloping of L3 and L4 vertebral bodies fairly similar to prior study. No acute bony abnormality. OTHER: None. IMPRESSION: 1. Findings compatible with acute sigmoid diverticulitis. No significant abscess formation or bowel perforation. Initial report was provided by [facility]. Dictated by: Dictated on workstation # [id number]
--- NOTE | 2020-11-18 06:13 | Diagnostic Imaging Report ---
INDICATION: Abdominal pain TECHNIQUE: Single view chest with supine and upright radiographs of the abdomen. CORRELATION STUDY: Chest 10/08/2020 FINDINGS: Frontal radiograph of the chest demonstrates no acute abnormality. Supine and upright radiographs of the abdomen demonstrates the bowel gas pattern to be unremarkable and without evidence for obstruction. No free air is seen under the diaphragms. Small calcification projects over the inferior pole left kidney. Mild leftward curvature of the thoracolumbar spine. IMPRESSION: 1. Negative for acute cardiopulmonary abnormality. 2. Unremarkable appearing bowel gas pattern. Left nephrolithiasis. Dictated by: Dictated on workstation # [id number]
[2020-11-18 06:18] VITALS: BP 135/95
== END 2020-11-18 06:17 | disposition home or self-care (01) ==
LOC: EDUNIT# 03:48 → ER 03:51
DX: K80.70 Calculus of gallbladder and bile duct without cholecystitis without obstruction (principal); K57.32 Diverticulitis of large intestine without perforation or abscess without bleeding; K21.9 Gastro-esophageal reflux disease without esophagitis; F17.290 Nicotine dependence, other tobacco product, uncomplicated; Z79.899 Other long term (current) drug therapy
CPT/HCPCS: 36415; 74022; 74177; 80053; 81000; 82150; 83690; 85025

== ENCOUNTER 2021-11-29 09:43 | Emergency (ER) | payer BC ==
[~2021-11-29] VITALS: Ht 165.1 cm; Wt 78.5 kg
[~2021-11-29 09:43] MED LIST changes: +CIPR-225 PO; +PANT40TA2 PO; -SULF1TAB35 PO; +SULF1TAB38 PO
--- NOTE | 2021-11-29 10:07 | ED Abdominal Pain ---
General Chief Complaint: Abdominal/GI Problems Stated Complaint: ABD PAIN Nursing Triage Note: Pt arrival to ER via private vehicle with complaint of abdominal pain since 0600. Pt states that its worsened all morning and rates pain at a 10/10. Pt is unable to describe how it feels. Pt states that he does have a history of gall stones. Source of Information: Patient Exam Limitations: No Limitations History of Present Illness Date Seen by Provider: November 29, 2021 Time Seen by Provider: 09:52 Initial Comments Patient to the ER by private conveyance from home with chief complaint for the past 3 or 4 hours he has been experiencing progressively worsening epigastric pain radiating through to his back both sides. No dysuria. He says the pain is similar to a couple years ago when he had biliary colic with gallstones found. He had tried to set up an elective surgery but it got canceled due to COVID and he never really scheduled. He had bilateral inguinal hernia repairs in the past. Last time he ate was at 0 200 he had a stuffed jalapeno pepper and chicken. He has not tried anything for the pain. He does have nausea and vomited at least once tonight and said to have the characteristic of melted plastic. No diarrhea or constipation. No fevers or chills. He has a history of diverticulosis and diverticulitis but states this pain is very different. Allergies and Home Medications Allergies Coded Allergies: No Known Drug Allergies (Unverified , 04/27/16) Patient Home Medication List Home Medication List Reviewed: Yes Carboxymethylcellulose Sodium (Refresh Contacts) 12 Ml Drops, 1-2 DROPS OP PRN PRN for DRY EYES, (Reported) Entered as Reported by: LATRICE TAVERAS on 10/08/20 1431 Ciprofloxacin HCl (Ciprofloxacin HCl) 500 Mg Tablet, 500 MG PO BID Prescribed by: ELLEN FLORENTINO on 11/02/20 1232 Ciprofloxacin HCl (Cipro) 500 Mg Tablet, 500 MG PO BID Prescribed by: BELGICA MELO on 11/18/20 0605 Hydrocodone/Acetaminophen (Hydrocodone-Acetamin 5-325 mg) 1 Each Tablet, 1 TAB PO Q6H PRN for PAIN-MODERATE (5-7) Prescribed by: ELLEN FLORENTINO on 11/02/20 1233 Hydrocodone/Acetaminophen (Hydrocodone-Acetamin 5-325 mg) 1 Each Tablet, 1 EACH PO Q4-6 HOURS PRN for PAIN Prescribed by: BELGICA MELO on 11/18/20 06 Ibuprofen (Advil) 200 Mg Tablet, 400-600 MG PO Q8H PRN for PAIN-MILD (1-4), (Reported) Entered as Reported by: LATRICE TAVERAS on 10/08/20 1431 Melatonin (Melatonin) 5 Mg Tablet, 5 MG PO HS PRN for SLEEP, (Reported) Entered as Reported by: LATRICE TAVERAS on 10/08/20 1431 Metronidazole (Flagyl) 500 Mg Tablet, 500 MG PO TID Prescribed by: ELLEN FLORENTINO on 11/02/20 1232 Metronidazole (Flagyl) 500 Mg Tablet, 500 MG PO QID Prescribed by: BELGICA MELO on 11/18/20 06 Omeprazole Magnesium (Prilosec Otc) 20 Mg Tablet.dr, 20 MG PO DAILY PRN for HEARTBURN, (Reported) Entered as Reported by: LATRICE TAVERAS on 10/08/20 1431 Ondansetron (Ondansetron Odt) 4 Mg Tab.rapdis, 4 MG PO Q8H Prescribed by: ELLEN FLORENTINO on 11/02/20 1233 Ondansetron (Ondansetron Odt) 4 Mg Tab.rapdis, 4 MG PO Q4H Prescribed by: BELGICA MELO on 11/18/20 06 Pantoprazole Sodium (Protonix) 40 Mg Tablet.dr, 40 MG PO DAILY Prescribed by: BELGICA MELO on 11/18/20 06 Review of Systems Review of Systems Constitutional: No chills, No diaphoresis, No fever EENTM: No Blurred Vision, No Double Vision Respiratory: Denies Cough, Denies Shortness of Air Cardiovascular: Denies Chest Pain, Denies Lightheadedness Gastrointestinal: See HPI, Abdominal Pain; Denies Constipated, Denies Diarrhea; Nausea, Vomiting Genitourinary: Denies Burning, Denies Discharge Musculoskeletal: see HPI, back pain; No joint pain All Other Systems Reviewed Negative Unless Noted: Yes Past Lrqptix-Slootq-Dfinye Hx Patient Social History Tobacco Use?: No Use of E-Cig and/or Vaping dev: No Substance use?: No Alcohol Use?: Yes Alcohol type: Beer, Hard Liquor Alcohol Frequency: Rarely Pt feels they are or have been: No Immunizations Up To Date Tetanus Booster (TDap): Less than 5yrs Influenza Vaccine Up-to-Date: Yes; Up-to-Date Second COVID19 Vaccination Kiran: 05/30 COVID19 Vaccine 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 Seasonal Allergies Seasonal Allergies: No Past Medical History Surgeries: Yes (INGUINAL HERNIA, MULTIPLE NEUROFIBROMAS REMOVED) Abdominal Respiratory: No Currently Using CPAP: No Cardiac: No Neurological: Yes Headaches /Migraines Reproductive Disorders: No Sexually Transmitted Disease: No HIV/AIDS: No Genitourinary: Yes (KDINEY STONES NOTED ON CT SCAN 11/2020) Gastrointestinal: Yes (DIVERTICULITIS 10/2020) Gastroesophageal Reflux, Diverticulosis, Gall Bladder Disease Musculoskeletal: No Endocrine: No HEENT: No Loss of Vision: Bilateral Hearing Impairment: Denies Cancer: No Psychosocial: No Integumentary: Yes (NEUROFIBROMAS) Blood Disorders: No Adverse Reaction/Blood Tranf: No (N/A) Family Medical History Arthritis 19 MOTHER Neoplasm 19 MOTHER Parkinson's disease 19 FATHER No Family History of: AIDS Abdominal aortic aneurysm Harvey's disease Alcoholism Alzheimer's disease Aphasia Asthma Cancer of mouth Cardiovascular disease Cataracts Colon cancer Completed stroke Congenital disease Congenital heart disease Coronary thrombosis Cystic fibrosis Deafness or hearing loss Dementia Diabetes mellitus Drug abuse Dysphasia Fibrocystic disease of breast Gastroenteritis Glaucoma Headache disorder Hypercholesterolemia Hypertension Infertility Kidney disease Myocardial infarction Not obtainable due to adoption Osteoporosis Prostate cancer Psychosocial problem Respiratory disorder Seizure disorder Severe allergy Thyroid disease Tuberculosis Visual disorder No Pertinent Family Hx Physical Exam Vital Signs Vital Signs - First Documented 11/29/21 09:56 Temp 36.1 Pulse 73 Resp 18 B/P (MAP) 175/120 (138) Pulse Ox 97 O2 Delivery Room Air Capillary Refill : Less Than 3 Seconds Height/Weight/BMI Height: 5'8.00" Weight: 150lbs. 0.0oz. 68.449949zd; 28.00 BMI Method:Stated General Appearance: WD/WN, moderate distress HEENT: PERRL/EOMI, pharynx normal Neck: full range of motion, supple, normal inspection Respiratory: lungs clear, normal breath sounds, no respiratory distress, no accessory muscle use Cardiovascular: normal peripheral pulses, regular rate, rhythm Peripheral Pulses: 2+ Radial Pulses (R), 2+ Radial Pulses (L) Gastrointestinal: soft, no organomegaly, tenderness (Epigastric and right upper quadrant without Bonner sign. Mildly tender all 4 quadrants.) Extremities: normal range of motion, normal inspection, normal capillary refill Neurologic/Psychiatric: alert, normal mood/affect, oriented x 3 Skin: normal color, warm/dry Procedures/Interventions Suture Size: 5-0 Progress/Results/Core Measures Results/Orders Lab Results Laboratory Tests Test 11/29/21 09:53 11/29/21 10:33 Range/Units Urine Color YELLOW Urine Clarity CLEAR Urine pH 5.0 5-9 Urine Specific Osburn >=1.030 1.016-1.022 Urine Protein NEGATIVE NEGATIVE Urine Glucose (UA) NEGATIVE NEGATIVE Urine Ketones NEGATIVE NEGATIVE Urine Nitrite NEGATIVE NEGATIVE Urine Bilirubin NEGATIVE NEGATIVE Urine Urobilinogen 0.2 < = 1.0 MG/DL Urine Leukocyte Esterase NEGATIVE NEGATIVE Urine RBC (Auto) 2+ H NEGATIVE Urine RBC 2-5 H /HPF Urine WBC NONE /HPF Urine Squamous Epithelial Cells RARE /HPF Urine Crystals NONE /LPF Urine Bacteria TRACE /HPF Urine Casts NONE /LPF Urine Mucus SMALL H /LPF Urine Culture Indicated NO White Blood Count 11.8 H 4.3-11.0 10^3/uL Red Blood Count 5.27 4.30-5.52 10^6/uL Hemoglobin 15.8 13.3-17.7 g/dL Hematocrit 47 40-54 % Mean Corpuscular Volume 88 80-99 fL Mean Corpuscular Hemoglobin 30 25-34 pg Mean Corpuscular Hemoglobin Concent 34 32-36 g/dL Red Cell Distribution Width 13.5 10.0-14.5 % Platelet Count 351 130-400 10^3/uL Mean Platelet Volume 9.3 9.0-12.2 fL Immature Granulocyte % (Auto) 1 % Neutrophils (%) (Auto) 77 H 42-75 % Lymphocytes (%) (Auto) 12 12-44 % Monocytes (%) (Auto) 8 0-12 % Eosinophils (%) (Auto) 1 0-10 % Basophils (%) (Auto) 0 0-10 % Neutrophils # (Auto) 9.1 H 1.8-7.8 10^3/uL Lymphocytes # (Auto) 1.5 1.0-4.0 10^3/uL Monocytes # (Auto) 1.0 0.0-1.0 10^3/uL Eosinophils # (Auto) 0.1 0.0-0.3 10^3/uL Basophils # (Auto) 0.1 0.0-0.1 10^3/uL Immature Granulocyte # (Auto) 0.1 0.0-0.1 10^3/uL Sodium Level 137 135-145 MMOL/L Potassium Level 3.8 3.6-5.0 MMOL/L Chloride Level 107 98-107 MMOL/L Carbon Dioxide Level 19 L 21-32 MMOL/L Anion Gap 11 5-14 MMOL/L Blood Urea Nitrogen 27 H 7-18 MG/DL Creatinine 0.96 0.60-1.30 MG/DL Estimat Glomerular Filtration Rate 96 BUN/Creatinine Ratio 28 Glucose Level 104 70-105 MG/DL Calcium Level 8.9 8.5-10.1 MG/DL Corrected Calcium 8.9 8.5-10.1 MG/DL Total Bilirubin 0.6 0.1-1.0 MG/DL Aspartate Amino Transf (AST/SGOT) 19 5-34 U/L Alanine Aminotransferase (ALT/SGPT) 25 0-55 U/L Alkaline Phosphatase 59 40-136 U/L C-Reactive Protein High Sensitivity 0.23 0.00-0.50 MG/DL Total Protein 7.0 6.4-8.2 GM/DL Albumin 4.0 3.2-4.5 GM/DL Lipase 44 8-78 U/L My Orders Orders - RAZIA ROMANO Gallbladder [id number] (11/29/21 10:01) Ed Iv/Invasive Line Start (11/29/21 10:01) Lactated Ringers (Lr 1000 Ml Iv Solution (11/29/21 10:15) Fentanyl Inj (Sublimaze Injection) (11/29/21 10:15) Ondansetron Injection (Zofran Injectio (11/29/21 10:15) Pantoprazole Injection (Protonix Injecti (11/29/21 10:15) Cbc With Automated Diff (11/29/21 10:01) Comprehensive Metabolic Panel (11/29/21 10:01) Hs C Reactive Protein (11/29/21 10:01) Lipase (11/29/21 10:01) Ua Culture If Indicated (11/29/21 10:01) Medications Given in ED Current Medications Medications Dose Ordered Sig/Rafael Route Start Time Stop Time Status Last Admin Dose Admin Fentanyl Citrate 50 mcg ONCE ONCE IVP 11/29/21 10:15 11/29/21 10:16 DC 11/29/21 10:35 50 MCG Lactated Ringer's 1,000 ml @ 0 mls/hr Q0M ONCE IV 11/29/21 10:15 11/29/21 10:16 DC 11/29/21 10:36 999 MLS/HR Ondansetron HCl 8 mg ONCE ONCE IVP 11/29/21 10:15 11/29/21 10:16 DC 11/29/21 10:36 8 MG Pantoprazole 40 mg ONCE ONCE IV 11/29/21 10:15 11/29/21 10:16 DC 11/29/21 10:36 40 MG Vital Signs/I&O 11/29/21 09:56 Temp 36.1 Pulse 73 Resp 18 B/P (MAP) 175/120 (138) Pulse Ox 97 O2 Delivery Room Air Blood Pressure Mean: 138 Progress Progress Note #1: Time: 10:06 Progress Note Aseptic vital signs. He certainly has an elevated blood pressure and seems to be uncomfortable. Pantoprazole 40 mg. 50 mcg of fentanyl for his pain and 8 mg of ondansetron for his nausea. A liter of lactated Ringer's and will get an ultrasound of his gallbladder. Differential includes diverticulitis, gastritis, GERD. Progress Note #2: Time: 11:44 Progress Note Pain is significantly reduced from a 10 out of 10 down to a 4 out of 10. He is not having any nausea. We discussed his borderline findings of cholecystitis and cholelithiasis. He does not have an elevated white count or bilirubin nor does he have elevated liver enzymes or pancreatic enzymes. We did offer the patient to see the surgeon today and talk about getting his gallbladder out to sort his problems out but he would prefer to set this up for later in the week since he has to arrange for care of his animals so we will go ahead and give him some antibiotics and have him follow-up outpatient with return precautions. Diagnostic Imaging Diagonstic Imaging: Ultrasound Plain Films/CT/US/NM/MRI: other (Gallbladder) Comments [facility]. [place], [place] NAME: SHERIFFADAMAMARBELLA L [facility] REC#: [id number] PT STATUS: REG ER : 1970 PHYSICIAN: RAZIA ROMANO MD ADMIT DATE: 11/29/21/ER Draft Date of Exam:11/29/21 US GALLBLADDER [id number] PROCEDURE: US Gallbladder. TECHNIQUE: Multiple real-time grayscale images were obtained over the right upper quadrant in various projections. INDICATION: Abdominal pain. The liver is enlarged at 20 cm. No discrete liver mass is identified. The portal vein is patent and shows normal direction of flow. Gallbladder does contain stones in the region of the gallbladder neck. The gallbladder wall is borderline in thickness at approximately 3 mm. No pericholecystic fluid or biliary ductal dilatation is seen. Pancreas, aorta and IVC were obscured by overlying bowel gas. Right kidney is unremarkable for calculi or hydronephrosis. There is no ascites. IMPRESSION: 1. Hepatomegaly. 2. Cholelithiasis with borderline gallbladder wall thickening. Acute cholecystitis cannot be entirely excluded. Patient did have a positive sonographic Bonner's sign. Dictated on workstation # [id number] Dict: 11/29/21 1038 Trans: 11/29/[address] [facility] [id number] Interpreted by: FRANK MUNSON MD Electronically signed by: Reviewed: Reviewed by Me Departure Impression Primary Impression: Biliary colic Additional Impression: Symptomatic cholelithiasis Disposition: 01 HOME, SELF-CARE Condition: Stable Departure-Patient Inst. Decision time for Depature: 11:47 Referrals: LILLIAN MCCRAY DO NO,LOCAL PHYSICIAN (PCP) Primary Care Physician Patient Instructions: Cholecystectomy (DC) Add. Discharge Instructions: Call Dr. Mccray today and make a follow-up appointment this week to discuss your pain and appropriate management. Stick to bland, liquid diet until your symptoms alleviate. Avoid greasy foods, spicy foods, especially dairy. Hydrocodone 1 tablet every 6 hours as needed for severe pain. Ondansetron 1 tablet every 6 hours as needed for nausea or vomiting. flagyl 1 tablet 3 times a day for a week. Ciprofloxacin 1 capsule twice a day for a week. Probiotics 1 tablet twice a day for 2 weeks to restore normal intestinal bacteria. All discharge instructions reviewed with patient and/or family. Voiced understanding. Scripts Metronidazole (Metronidazole) 500 Mg Tablet 500 MG PO TID for 7 Days, #21 TAB 0 Refills Prov: RAZIA ROMANO 11/29/21 Ciprofloxacin HCl (Ciprofloxacin HCl) 500 Mg Tablet 500 MG PO BID, #14 TAB 0 Refills Prov: RAZIA ROMANO 11/29/21 Hydrocodone/Acetaminophen (Hydrocodone-Acetamin 5-325 mg) 5 Mg-325 Mg Tablet 1 TAB PO Q6H PRN for PAIN-MODERATE (5-7), #10 TAB 0 Refills Prov: RAZIA ROMANO 11/29/21 Ondansetron (Ondansetron Odt) 4 Mg Tab.rapdis 4 MG PO Q6H PRN for NAUSEA/VOMITING, #8 TAB 0 Refills Prov: RAZIA ROMANO 11/29/21 Work/School Note: Work Release Form Date Seen in the Emergency Department: November 29, 2021 Return to Work: December 06, 2021 Restrictions: Need Release from Doctor Copy Copies To 1: LILLIAN MCCRAY TITUS J November 29, 2021 10:06
[2021-11-29] MEDS ORDERED: LACTATED RINGERS 1,000 ML IV ONE (10:15)
[2021-11-29] MEDS ORDERED: ONDANSETRON 4 MG/2 ML (SDV) Z0FRAN IVP ONE (10:15)
[2021-11-29] MEDS ORDERED: fentaNYL INJ 100 MCG/2 ML AMP IVP ONE (10:15)
[2021-11-29] MEDS ORDERED: PANTOPRAZOLE 40 MG (PROTONIX) VIAL IV ONE (10:15)
[2021-11-29 10:25] LABS: BILIRUBIN,URINE NEGATIVE (NEGATIVE); CLARITY,URINE CLEAR; COLOR,URINE YELLOW; GLUCOSE, URINE (UA) NEGATIVE (NEGATIVE); KETONES,URINE NEGATIVE (NEGATIVE); LEUKOCYTE ESTERASE ,URINE NEGATIVE (NEGATIVE); NITRITE,URINE NEGATIVE (NEGATIVE); PROTEIN,URINE NEGATIVE (NEGATIVE)
[2021-11-29 10:39] LABS: BACTERIA,URINE TRACE /HPF; SQUAMOUS EPITHELIAL CELL,UR RARE /HPF
--- NOTE | 2021-11-29 10:44 | Diagnostic Imaging Report ---
PROCEDURE: US Gallbladder. TECHNIQUE: Multiple real-time grayscale images were obtained over the right upper quadrant in various projections. INDICATION: Abdominal pain. The liver is enlarged at 20 cm. No discrete liver mass is identified. The portal vein is patent and shows normal direction of flow. Gallbladder does contain stones in the region of the gallbladder neck. The gallbladder wall is borderline in thickness at approximately 3 mm. No pericholecystic fluid or biliary ductal dilatation is seen. Pancreas, aorta and IVC were obscured by overlying bowel gas. Right kidney is unremarkable for calculi or hydronephrosis. There is no ascites. IMPRESSION: 1. Hepatomegaly. 2. Cholelithiasis with borderline gallbladder wall thickening. Acute cholecystitis cannot be entirely excluded. Patient did have a positive sonographic Bonner's sign. Dictated by: Dictated on workstation # [id number]
[2021-11-29 10:45] LABS: BASOPHILS # (AUTO) 0.1 10^3/uL (0.0-0.1); BASOPHILS % (AUTO) 0 % (0-10); EOSINOPHILS # (AUTO) 0.1 10^3/uL (0.0-0.3); EOSINOPHILS % (AUTO) 1 % (0-10); HEMATOCRIT 47 % (40-54); HEMOGLOBIN 15.8 g/dL (13.3-17.7); LYMPHOCYTES # (AUTO) 1.5 10^3/uL (1.0-4.0); LYMPHOCYTES % (AUTO) 12 % (12-44); MEAN CORPUSCULAR HEMOGLOBIN 30 pg (25-34); MEAN CORPUSCULAR HGB CONC 34 g/dL (32-36); MEAN CORPUSCULAR VOLUME 88 fL (80-99); MEAN PLATELET VOLUME 9.3 fL (9.0-12.2); MONOCYTES % (AUTO) 8 % (0-12); NEUTROPHILS # (AUTO) 9.1 10^3/uL (1.8-7.8); NEUTROPHILS % (AUTO) 77 % (42-75); PLATELET COUNT 351 10^3/uL (130-400); WHITE BLOOD COUNT 11.8 10^3/uL (4.3-11.0)
[2021-11-29 10:58] LABS: POTASSIUM 3.8 MMOL/L (3.6-5.0)
[2021-11-29 10:59] LABS: CALCIUM 8.9 MG/DL (8.5-10.1)
[2021-11-29 11:02] LABS: BILIRUBIN,TOTAL 0.6 MG/DL (0.1-1.0)
[2021-11-29 11:04] LABS: CREATININE SERUM 0.96 MG/DL (0.60-1.30)
[2021-11-29] MEDS ORDERED: ACHD5005 PO (11:50)
[2021-11-29] MEDS ORDERED: METR-145 PO (11:50)
[2021-11-29] MEDS ORDERED: ONDA4TAB11 PO (11:50)
[2021-11-29] MEDS ORDERED: CIPR500T5 PO (11:50)
[2021-11-29] MEDS ORDERED: cefTRIAXone 1 GM PRE-MIX 50 ML IV ONE (12:00)
[2021-11-29 14:17] VITALS: BP 143/87
[2021-12-01] MEDS ORDERED: ACHD5005 PO (15:23)
== END 2021-11-29 12:22 | disposition home or self-care (01) ==
LOC: EDUNIT# 09:43 → ER 09:45
DX: K80.50 Calculus of bile duct without cholangitis or cholecystitis without obstruction (principal); K80.10 Calculus of gallbladder with chronic cholecystitis without obstruction; Z86.16 Personal history of COVID-19
CPT/HCPCS: 36415; 76705; 80053; 81000; 83690; 85025; 86141

== ENCOUNTER 2021-11-30 14:54 | Outpatient (CLI) | payer BC ==
[~2021-11-30] VITALS: Ht 165.1 cm; Wt 69.5 kg
[~2021-11-30 14:54] MED LIST changes: +METR-145 PO
[2021-12-01] MEDS ORDERED: ACHD5005 PO (15:23)
== END 2021-11-30 15:37 | disposition home or self-care (01) ==
LOC: PREOP 14:54
PROVIDERS: ATTEND Surgery
DX: Z01.818 Encounter for other preprocedural examination (principal)

== ENCOUNTER 2021-12-01 12:08 | Day surgery (SDC) | payer BC ==
[2021-12-01] VITALS (13 sets, daily range): BP systolic 77–121; BP diastolic 67–86
[~2021-12-01] VITALS: Ht 165.1 cm; Wt 69.5 kg
--- NOTE | 2021-12-01 12:37 | Progress Note-Pre Operative ---
Pre-Operative Progress Note H&P Reviewed The H&P was reviewed, patient examined and no changes noted. Time Seen by Provider: 12:35 Date H&P Reviewed: December 01, 2021 Time H&P Reviewed: 12:35 Pre-Operative Diagnosis: Acute Cholelithiasis/Cholecystitis LILLIAN MCCRAY DO December 01, 2021 12:37
[2021-12-01] MEDS ORDERED: ceFAZolin 2 GM IV Premixed 50 ML IV ONE (12:45)
[2021-12-01] MEDS ORDERED: GLYCOPYRROLATE 0.2 MG/ML (ROBINUL) 2 ML VIAL ONE (12:57)
[2021-12-01] MEDS ORDERED: MIDAZOLAM 2 MG/2 ML (VERSED) VIAL ONE (12:57)
[2021-12-01] MEDS ORDERED: proPOfol 200 MG/20 ML (DIPRIVAN) VIAL IV ONE (12:57)
[2021-12-01] MEDS ORDERED: ONDANSETRON 4 MG/2 ML (SDV) Z0FRAN ONE (12:57)
[2021-12-01] MEDS ORDERED: NEOSTIGMINE 3 MG/3 ML VIAL ONE (12:57)
[2021-12-01] MEDS ORDERED: fentaNYL INJ 100 MCG/2 ML AMP ONE (12:57)
[2021-12-01] MEDS ORDERED: LIDOCAINE PF 2% 5 ML (XYLOCAINE) VIAL ONE (12:57)
[2021-12-01] MEDS ORDERED: ROCURONIUM 50 MG/5 ML (ZEMURON) VIAL IV ONE (12:58)
[2021-12-01] MEDS: LACTATED RINGERS 1,000 ML IV PRN ×2 (12:59→15:06)
[2021-12-01] MEDS ORDERED: LIDOCAINE/EPI 2% 1:200,00 (XYLOCAINE) 20 ML VIAL ONE (13:19)
[2021-12-01 13:39] LABS: AMPHETAMINE SCREEN, URINE NEGATIVE (NEGATIVE); BARBITURATE SCREEN URINE NEGATIVE (NEGATIVE); BENZODIAZEPINES SCREEN URINE NEGATIVE (NEGATIVE); CANNABINOID SCREEN, URINE NEGATIVE (NEGATIVE); COCAINE SCREEN URINE NEGATIVE (NEGATIVE); METHADONE STAT NEGATIVE (NEGATIVE); OPIATE SCREEN URINE POSITIVE (NEGATIVE); OXYCODONE STAT NEGATIVE (NEGATIVE); PROPOXYPHENE STAT NEGATIVE (NEGATIVE); TRICYCLIC ANTIDEPRESSANTS SCRE NEGATIVE (NEGATIVE)
[2021-12-01] MEDS ORDERED: PHENYLEPHRINE 100 MCG/ML 10 ML (ANESTHESIA) SYR ONE (14:33)
[2021-12-01] MEDS ORDERED: HYDROmorphone 2 MG/ML VIAL (DILAUDID) ONE (14:59)
[2021-12-01] MEDS ORDERED: KETOROLAC 30 MG/ML VIAL ONE (15:09)
[2021-12-01] MEDS ORDERED: SEVOFLURANE (ULTANE) 15 ML INHAL SOLN ONE (15:12)
--- NOTE | 2021-12-01 15:20 | Progress Note-Post Operative ---
Post-Operative Progess Note Surgeon (s)/Litigation Coordinator (s) Surgeon LILLIAN MCCRAY DO Litigation Coordinator: Ileana Pre-Operative Diagnosis Acute Cholelithiasis/Cholecystitis Post-Operative Diagnosis same with partially necrotic gallbladder and some purulence Procedure & Operative Findings Date of Procedure 12/01/21 Procedure Performed/Findings PROCEDURE: Laparoscopic cholecystectomy with intraoperative cholangiogram. COMPLICATIONS: None. PROCEDURE: The patient was taken to the operating suite and was prepped and draped in sterile fashion. A surgical pause was performed. Just superior to the umbilicus, a 12 mm incision was made. Dissection was taken down to the fascia, which was then scored and grasped with a Lakia and the abdomen was then entered. An 0-Vicryl suture was placed in a [id number] fashion and a Chacon trocar was placed and secured. Pneumoperitoneum was achieved. A 5mm trochar place in the subxyphoid and 2 in the right upper quadrant. Upon entering noted adhesions and what looked like purulence under the omentum stuck to the gallbladder. Carefully started taking down the adhesions and noted what looked like some necrosis on the gallbladder at the fundus. The gallbladder was then grasped and elevated. The cystic duct and cystic artery were then dissected out. Clip was placed on the distal portion of the cystic duct which was then partially transected. An arrow catheter was inserted into the duct. The cholangiogram was then performed. No filing defects and contrast made its way into the duodenum. Catheter removed. Clips were placed on proximal portion of the cystic duct and then the duct was then transected. Clips were placed along the proximal and distal portion of the cystic artery which was then tra nsected. Hook cautery was used to dissect the gallbladder from the gallbladder fossa achieving hemostasis. The gallbladder was placed in an Endobag and removed through the 12 mm trocar site. The abdomen was then reinspected. Copious amounts of irrigation were used to irrigate the abdomen and there were no signs of active bleeding. Hemostasis had been achieved. The 12 mm fascial defect was then closed with 0 Vicryl suture that had been placed in a [id number] fashion. The abdomen was then desufflated, the trocars were removed. The abdomen was then washed and dried. The skin was then closed using 4-0 Monocryl in a subcuticular fashion. The abdomen was washed and dried and Skin Affix was place over incisions. Patient tolerated the procedure well w ithout any complications and was taken to the recovery room in stable condition. Dr. Tejeda assisted on this case helping to make incisions, close incisions, identify anatomy and hold anatomy out of the way. Anesthesia Type GET Estimated Blood Loss Estimated blood loss (mL): less than 20cc Specimens/Packing Specimens Removed GB and contents LILLIAN MCCRAY DO December 01, 2021 15:20
[2021-12-01] MEDS ORDERED: ACHD5005 PO (15:23)
--- NOTE | 2021-12-01 15:24 | Discharge Inst-Surgical ---
Discharge Inst-Surgical Depart Medication/Instructions New, Converted or Re-Newed RX: Transmitted to Pharmacy Patient Instructions Follow up Appt: Make appointment for 1 week. [phone] Instructions: No lifting greater than 20 pounds. No strenuous activity. May shower in 24 hours, no tub bath or soaking. Use incentive spirometer at home as directed. No Smoking Skin/Wound Care: May remove bandages in am. You need to leave the Dermabond on incision it will fall off on it's own. Symptoms to Report: Appetite Changes, Extremity Discoloration, Numbness/Tingling, Swelling Increased, Bleeding Excessive, Eyesight Changes, Pain Increased, Urine Color Change, Constipation(Persistent), Fever over 101 degree F, Pain/Pressure in chest, Urinating Difficulty, Cough Up/Vomit Blood, Heart Beat Irreg/Pounding, Pain/Pressure in jaw, Cramps in feet or legs, Lightheadedness, Pain/Pressure in shoulder, Diarrhea(Persistent), Memory Changes Suddenly, Questions/Concerns, Weight gain consecutive days, Dizziness/Fainting, Nausea/Vomiting, Shortness of Breath, Weight gain over 2 pounds If questions or concerns contact your physician Or seek help at emergency department. Activity Activity as Tolerated: Yes Activity Instructions: Avoid Stress to Incision Driving Instructions: No Driving/Refer to Dr. Cannon Discharge Diet: Avoid Fatty Foods, Low Fat/Low Cholesterol If Any Problems/Questions/Issu: Contact Your Physician, Go to Emergency Room Skin/Wound Care Infection Signs and Symptoms: Increased Redness, Foul Odor of Wound, Increased Drainage, Skin Itchy or Has a Rash, Increased Swelling, Temperature Above 101 F Wound Care Comment: heating pad to shoulder or neck tonight for pain Bathing Instructions: Shower Stitches/Neri/Dermabond Dis: Dermabond Ice Pack: Ice On and Off Site LILLIAN MCCRAY DO December 01, 2021 15:24
[2021-12-01] MEDS ORDERED: HYDROmorphone 2 MG/ML VIAL (DILAUDID) IV ONE (15:30)
[2021-12-01] MEDS ORDERED: ONDANSETRON 4 MG/2 ML (SDV) Z0FRAN IVP PRN (15:30)
--- NOTE | 2021-12-01 16:17 | Diagnostic Imaging Report ---
INDICATION: Cholecystectomy. TECHNIQUE: The operative cholangiogram was performed in the routine fashion. 54 images were obtained. 10.2 seconds of fluoroscopy time was used. FINDINGS: The biliary tree is nondilated. There are no filling defects in the common duct. Contrast passes to the duodenum without obstruction. Some reflux into the pancreatic duct is noted. IMPRESSION: Unremarkable operative cholangiogram. No common duct obstruction. Dictated by: Dictated on workstation # [id number]
--- NOTE | 2021-12-01 17:21 | Anesthesia-General Post-Op ---
General Patient Condition Mental Status/LOC: Same as Preop Cardiovascular: Satisfactory Nausea/Vomiting: Absent Respiratory: Satisfactory Pain: Controlled Complications: Absent Post Op Complications Complications None Follow Up Care/Instructions Patient Instructions None needed. Anesthesia/Patient Condition Patient Condition Patient is doing well, no complaints, stable vital signs, no apparent adverse anesthesia problems. No complications reported per nursing. D/C home per [facility] [place] [facility] [place] Criteria: Yes CARMEN CH CRNA December 01, 2021 17:21
== END 2021-12-01 17:53 | disposition home or self-care (01) ==
LOC: SDC 12:08
PROVIDERS: ATTEND Surgery
DX: K80.12 Calculus of gallbladder with acute and chronic cholecystitis without obstruction (principal); K82.8 Other specified diseases of gallbladder; K42.9 Umbilical hernia without obstruction or gangrene
CPT/HCPCS: 76000; 80306; 87081; 88304